=== PATIENT | female | born 1960 | race African-American/Black ===

== ENCOUNTER 2020-07-02 13:56 | Outpatient (CLI) | payer BC, SELFPAY ==
--- NOTE | ~2020-07-02 | MM_ITS ---
EXAMINATION: MM screening ramon BI w gilbert HISTORY: Screening mammogram TECHNIQUE: Craniocaudal and mediolateral oblique 3-D tomosynthesis images were obtained and synthetic 2-D images were generated. CAD analysis was submitted and interpreted. COMPARISON: 02/25/2016 post stereotactic biopsy mammogram 01/20/2016 diagnostic right digital mammogram 12/11/2015 bilateral digital screening mammogram BREAST PARENCHYMAL COMPOSITION: There are scattered areas of fibroglandular density. FINDINGS: There are 2 biopsy markers in the posterior aspect of the upper outer quadrant of the right breast from 02/25/2016 stereotactic biopsy of 2 separate clusters of microcalcifications, reportedly benign. Occasional bilateral benign calcifications are noted. There is no evidence of suspicious mass, calcification, or architectural distortion to suggest malig terence in either breast. There has been no suspicious interval change. IMPRESSION: 1. No mammographic evidence of malignancy. 2. Recommend routine screening mammography in one year. BI-RADS Category 2: Benign finding(s). Reviewed, dictated and finalized at location D.
--- NOTE | ~2020-07-02 | DEXA_ITS ---
Bone Density Report Name: Corrie Nice Age: 60 Sex: Female Ethnicity: White Date of : 1960 Indication: postmenopausal; height loss; Referring Provider: DOM TATE Study: Bone densitometry was performed. Exam Date: July 02, 2020 Accession number: [id number] Bone Density: Region BMD T-score Z-score Classification AP Spine (L1, L2, L3) 1.066 0.4 1.8 Normal Femoral Neck (Left) 0.802 -0.4 0.8 Normal Total Hip (Left) 0.897 -0.4 0.5 Normal Total Hip Bilateral Avg 0.871 -0.6 0.3 Normal Femoral Neck (Right) 0.818 -0.3 1.0 Normal Total Hip (Right) 0.844 -0.8 0.1 Normal World Health Organization criteria for BMD impression classify patients as: Normal (T-score at or above -1.0), Osteopenia (T-score between -1.0 and -2.5), or Osteoporosis (T-score at or below -2.5). 10-year Fracture Risk: FRAX not reported because: All T-scores for Spine Total, Hip Total, Femoral Neck at or above -1.0 Clinical Information Provided by Patient: Patient maximum height was 72 Menopause Age: 53 No regular weight bearing exercise Drinks caffeinated beverages Onset of menses at age 14 Number of children 1 Impression: The patient has normal bone mass. Discussion: BONE DENSITY IS ABOVE THE MINIMUM DESIRABLE LEVEL AT ALL SKELETAL SITES TESTED. This patient?s bone mineral density is above the minimum desirable level (T-score -1.0 or better) at all sites measured. The patient should follow a healthful lifestyle (good nutrition with adequate calcium and vitamin D, and appropriate weight-bearing exercise). Follow-Up: Consider repeating this study in 5 years or sooner if there is some new clinical indication. Reported by: GLEN on 07/02/2020 2:34:00 PM. Reviewed, dictated and finalized at location ACody [facility]
== END 2020-07-02 13:57 | disposition home or self-care (01) ==
LOC: ANHIMG 14:01
PROVIDERS: PCP Internal Medicine; Visit Provider Obstetrics & Gynecology
DX: Z12.31 Encounter for screening mammogram for malignant neoplasm of breast (principal); Z78.0 Asymptomatic menopausal state
CPT/HCPCS: 77063; 77067; 77080

== ENCOUNTER 2022-04-22 16:07 | Outpatient (CLI) | payer BC, SELFPAY ==
--- NOTE | ~2022-04-22 | XR_ITS ---
EXAMINATION: XR chest 2V 04/22/2022 16:21 INDICATION: Cough and shortness of breath. PROCEDURE: 2 view chest COMPARISON: 12/09/2016 FINDINGS: The lungs are clear. The cardiomediastinal silhouette is within normal limits. There are no pleural effusions. There is no pneumothorax suspected. IMPRESSION: 1: NO ACUTE CARDIOPULMONARY DISEASE. Reviewed, dictated and finalized at location A.
== END 2022-04-22 16:08 ==
PROVIDERS: PCP Family Medicine; Visit Provider Family Medicine
DX: R05.9 Cough, unspecified (principal); J39.8 Other specified diseases of upper respiratory tract; R06.02 Shortness of breath
CPT/HCPCS: 71046

== ENCOUNTER 2022-05-10 14:55 | Outpatient (CLI) | payer BC, SELFPAY ==
--- NOTE | ~2022-05-10 | MM_ITS ---
EXAMINATION: MM screening ramon BI w gilbert HISTORY: Screening mammogram TECHNIQUE: Craniocaudal and mediolateral oblique 3-D tomosynthesis images were obtained and synthetic 2-D images were generated. Bilateral rotated lateral CC views. CAD analysis was submitted and interp reted. COMPARISON: 07/02 2020 bilateral screening mammogram examination 12/28/2015 bilateral screening mammogram BREAST PARENCHYMAL COMPOSITION: There are scattered areas of fibroglandular density. FINDINGS: There is a biopsy marker on the right; history of prior benign right breast biopsies. Bilateral microcalcifications are noted. Bilateral diagnostic mammography with magnification views is recommended. IMPRESSION: 1. Bilateral microcalcifications 2. Bilateral diagnostic mammography with magnification views and possible bilateral breast ultrasound examination are recommended BI-RADS Category 0: Incomplete: Needs additional imaging evaluation. Reviewed, dictated and finalized at location A. IMPRESSION: 1. Bilateral microcalcifications 2. Bilateral diagnostic mammography with magnification views and possible bilat eral breast ultrasound examination are recommended BI-RADS Category 0: Incomplete: Needs additional imaging evaluation.
== END 2022-05-10 14:56 | disposition home or self-care (01) ==
LOC: ANHIMG 14:58
PROVIDERS: PCP Family Medicine; Visit Provider Family Medicine
DX: Z12.31 Encounter for screening mammogram for malignant neoplasm of breast (principal); R92.8 Other abnormal and inconclusive findings on diagnostic imaging of breast
CPT/HCPCS: 77063; 77067

== ENCOUNTER 2022-05-11 11:57 | Outpatient (CLI) | payer BC, SELFPAY ==
[2022-05-11 12:30] LABS: Alanine Aminotransferase 19 U/L (6-35); Albumin Level 4.1 g/dL (3.5-5.1); Alkaline Phosphatase 117 U/L (38-126); Anion Gap 6 mmol/L (8-16); Aspartate Amino Transferase 19 U/L (14-36); Bilirubin,Total 0.6 mg/dL (0.2-1.3); Blood Urea Nitrogen 10 mg/dL (7-17); Carbon Dioxide 27 mmol/L (22-30); Chloride 107 mmol/L (98-107); Cholesterol 184 mg/dL (0-200); Estimated Glomerular Filt Rate > 60; Glucose 129 mg/dL (65-110); HDL Direct 61 mg/dL; Sodium 140 mmol/L (137-145); Triglycerides 62 mg/dL (<150)
[2022-05-11 12:45] LABS: LDL Cholesterol Direct 81 mg/dL
== END 2022-05-11 11:58 | disposition home or self-care (01) ==
LOC: ANHLAB 11:58
PROVIDERS: PCP Family Medicine; Visit Provider Family Medicine
DX: E11.9 Type 2 diabetes mellitus without complications (principal); I10 Essential (primary) hypertension; E78.5 Hyperlipidemia, unspecified
CPT/HCPCS: 36415; 80053; 80061; 83036

== ENCOUNTER 2022-06-14 10:39 | Outpatient (CLI) | payer BC, SELFPAY ==
--- NOTE | 2022-06-14 10:52 | ECG_ITS ---
Measurements Intervals [place] Rate: 75 P: 68 VA: 144 QRS: 15 QRSD: 83 T: 75 QT: 401 QTc: 448 Interpretive Statements SINUS RHYTHM VOLTAGE CRITERIA FOR LVH BORDERLINE T WAVE ABNORMALITY- HIGH LATERAL LEADS BORDERLINE ECG NO PREVIOUS ECG AVAILABLE FOR COMPARISON Electronically Signed On 06-14-2022 11:07:48 CDT by Aram Gonzalez D.O.
[2022-06-14 11:15] LABS: Appearance Urine Clear (Clear); Bacteria Urine Rare /hpf; Bilirubin Urine Negative (Negative); Blood Urine Negative (Negative); Color Urine Yellow (Yellow); Glucose Urine UA Negative (Negative); Ketones Urine Negative (Negative); Leukocyte Esterase Ur Negative LEU/UL (Negative); Nitrate Urine Negative (Negative); Non Pathogenic Casts 0-2; Protein Urine 2+ mg/dL (Negative); RBC Urine 0-2 /hpf (0-2); Specific Grav Ur 1.014 (1.001-1.035); Squamous Epithelial Cell Urine Occasional /hpf (Few); WBC Urine 0-5 /hpf
[2022-06-14 11:20] LABS: Add Urine Microscopic? YES
== END 2022-06-14 10:40 | disposition home or self-care (01) ==
PROVIDERS: PCP Family Medicine; Visit Provider Nurse Practitioner Family
DX: M17.11 Unilateral primary osteoarthritis, right knee (principal); R94.31 Abnormal electrocardiogram [ECG] [EKG]
CPT/HCPCS: 81001; 93005

== ENCOUNTER 2022-08-30 13:02 | Outpatient (CLI) | payer BC, SELFPAY ==
--- NOTE | ~2022-08-30 | MM_ITS ---
EXAMINATION: MM diagnostic ramon BI w gilbert HISTORY: Bilateral breast calcifications on screening mammogram TECHNIQUE: Magnification views of the breasts were performed and synthetic 2-D images were generated. CAD analysis was submitted and interpreted. COMPARISON: 05/10/2022,07/02/2020 BREAST PARENCHYMAL COMPOSITION: There are scattered areas of fibroglandular density. FINDINGS: There are multiple vascular calcifications of the right breast. No suspicious right breast calcification is seen. With magnification, calcifications in the upper outer quadrant of the left temo ast appear stable when compared to prior mammograms. IMPRESSION: 1. No mammographic evidence of malignancy. 2. Recommend routine screening mammography in one year. BI-RADS Category 2: Benign finding(s). Reviewed, dictated and finalized at location D.
== END 2022-08-30 13:03 | disposition home or self-care (01) ==
PROVIDERS: PCP Family Medicine; Visit Provider Family Medicine
DX: R92.0 Mammographic microcalcification found on diagnostic imaging of breast (principal)
CPT/HCPCS: 77062; 77066; G0279

== ENCOUNTER → 2023-03-03 14:40 | Outpatient (CLI) | payer BC, SELFPAY ==
--- NOTE | ~2023-03-03 | US_ITS ---
EXAMINATION: US thyroid DATE: 03/03/2023 14:57 INDICATION: Nontoxic goiter, unspecified. TECHNIQUE: Multiple ultrasound images of the thyroid were obtained. COMPARISON: None. FINDINGS: The right thyroid lobe measures 6.1 x 2.0 x 2.4 cm. The left thyroid lobe measures 5.3 x 1.6 x 2.1 c m. In the right thyroid lobe, there is a 1.8 cm solid, hypoechoic, wider than tall nodule with geovanna h margin without echogenic foci (TI-RADS TR4). In the right thyroid lobe, there is a 5 mm solid, very hypoechoic, wider than tall nodule with smooth margin without echogenic foci (TR4). In the left thyr oid lobe, there is a 3 mm nodule. IMPRESSION: 1. Multinodular goiter. Ultrasound-guided fine-needle aspiration of the 1.8 cm right thyroid nodule i s recommended. Reviewed, dictated and finalized at location E. AL SERVICES DIRECTOR IMPRESSION: 1. Multinodular goiter. Ultrasound-guided fine-needle aspiration of the 1.8 cm right thyroid nodule is recommended.
== END ==
PROVIDERS: PCP Family Medicine; Visit Provider Family Medicine
DX: E04.2 Nontoxic multinodular goiter (principal)
CPT/HCPCS: 76536

== ENCOUNTER 2023-04-07 12:34 | Outpatient (CLI) | payer BC, SELFPAY ==
--- NOTE | ~2023-04-07 | US_ITS ---
EXAMINATION: US FNA w image guidance DATE: 04/07/2023 13:46 INDICATION: Nontoxic single thyroid nodule. TECHNIQUE: The procedure and its benefits and risks were discussed with the patient. Risks specifically discusse d included bleeding. The patient verbalized understanding of the risks and agreed to proceed. The nec k was prepped and draped in the usual sterile manner. 1% lidocaine was used for local anesthesia. 7 passes were made with a 25G needle into the lesion under ultrasound guidance. There were no immedia te complications. FINDINGS: Grayscale ultrasound images demonstrate needles advanced into a 1.8 cm right thyroid nodule for biops y. IMPRESSION: 1. Ultrasound-guided fine needle aspiration of a right thyroid nodule. Reviewed, dictated and finalized at location A. 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
== END 2023-04-07 12:35 | disposition home or self-care (01) ==
PROVIDERS: PCP Family Medicine; Visit Provider Family Medicine
DX: E04.1 Nontoxic single thyroid nodule (principal)
CPT/HCPCS: 10005; 88172; 88173; 88305

== ENCOUNTER 2023-05-26 09:30 | Outpatient (CLI) | payer BC, SELFPAY ==
[2023-06-07 18:06] VITALS: BMI 28.5
--- NOTE | 2023-06-07 18:06 | WPDSLEEPSTUD ---
Sleep Study Date of Study: 05/26/23 Ordering Provider: Pablo Gupta DO Interpreting Physician: Heidi Newton DO Sleep Study Type: Polysomnogram Height: 1.83 m Weight: 95.254 kg Body Mass Index: 28.5 Neck Circumference (inches): 14 [place]: 8 Reason for Sleep Study Newly diagnosed CHF. Difficulty sleeping Sleep History The patient is a 63-year-old female with hypertension, congestive heart failure, type 2 diabetes, osteoarthritis, urinary incontinence and current tobacco use that had a sleep study ordered by her primary care physician for evaluation of sleep apnea. The patient occasionally has trouble sleeping when she has a cold. She occasionally wakes up gasping for air throughout the night. She rarely has breathing problems at night observed by herself or others. She frequently sweats excessively at night. She occasionally has heart palpitations or irregular heartbeats during the night. She rarely falls asleep during the day and never while driving. She denies sleep paralysis, cataplexy and hypnagogic / hypnopompic hallucinations. She denies having trouble at school or work due to sleepiness. She denies feeling afraid of going to sleep. She denies having nightmares. She rarely remembers her dreams. She rarely has thoughts racing through her mind. She rarely feels sad or depressed. She frequently has anxiety. She denies having muscular tension. She rarely notices parts of her body jerk. She denies kicking during the night. She rarely has crawling and aching feelings in her legs and rarely has leg pain during the night. She denies grinding her teeth during sleep denies awakening with morning jaw pain. She denies being bothered by pain during the day and denies being awakened by pain during the night. She frequently wakes up feeling stiff in the morning. She frequently wakes up with sore or achy muscles. She rarely wakes up with pain in the neck, spine and other joints. She goes to bed between 10:00 p.m. to 12:00 a.m. on both weekdays and weekends. It takes her 1 hour to fall asleep. She wakes up twice throughout the night for unknown reasons. Sometime she is unable to fall back asleep. She wakes up at 7:00 a.m. on both weekdays and weekends. She typically gets 3 hours of sleep per night. She will stay in bed for 1 hour after waking up in the morning. She currently lives alone. She denies consuming any caffeinated beverages within 2 hours of bedtime. She denies engaging in physical exercise before bedtime. She will watch television before falling asleep. She denies taking naps in the afternoon or the evening. She consumes 1 cup of caffeinated beverage in the morning. She has 1 alcoholic beverage after work. She currently smokes 1 pack of cigarettes per week. She denies recreational drug use. [facility] Past Medical History Medical History Fx surg nck humerus-closed (~11/2021) History of vaginal delivery Knee effusion Left hip pain Left knee DJD Right knee DJD Tooth decay Trochanteric bursitis, left hip Uterine fibroid Family History Family History Father Diabetes mellitus, Onset Age: 81 Hypertension, Onset Age: 81 Sibling Patient's sister is in good health Patient's brother is in good health Mother Family history of congestive heart failure Other Family history of cardiovascular disease Social History Social History Social History: Caffeine- daily Smoking status: Never smoker Second hand tobacco smoke exposure: No Smoking end date: 02/07/06 Alcohol intake: current Drinks per week: 5 Alcohol use details: beer Substance use: never Lack of Transportation: No Lack of Food: Never True Current Housing: I Have Housing Concerned About Future Housing: No Difficulty Paying Gas/Electric Bi
== END 2023-05-27 06:45 | disposition home or self-care (01) ==
LOC: ANHCSM 09:30
PROVIDERS: PCP Family Medicine; Visit Provider Family Medicine
DX: G47.33 Obstructive sleep apnea (adult) (pediatric) (principal); G47.10 Hypersomnia, unspecified
CPT/HCPCS: 95810

== ENCOUNTER 2023-06-24 08:36 | Outpatient (CLI) | payer BC, SELFPAY ==
--- NOTE | 2023-07-08 19:50 | WPDSLEEPSTUD ---
Sleep Study Date of Study: 06/24/23 Ordering Provider: Pablo Gupta DO Interpreting Physician: La Guerrero MD Sleep Study Type: CPAP Titration Height: 1.8 m Weight: 97.522 kg Body Mass Index: 29.9 Neck Circumference (inches): 15 [place]: 8 Reason for Sleep Study * 05/26/2023 polysomnogram with an AHI 11.4 and desaturaiton to 91%, now presents for CPAP titration Sleep History Corrie Nice is a 63-year-old female with hypertension, congestive heart failure, type 2 diabetes, osteoarthritis, urinary incontinence and current tobacco use who had a basic polysomnogram 05/26/2023 showing an apnea-hypopnea index of 11.4 and desaturation to 92%. She now presents for CPAP titration. She occasionally has trouble sleeping when she has a cold. She occasionally wakes up gasping for air at night. She rarely has breathing problems at night observed by others. She frequently sweats excessively at night. She occasionally has heart palpitations or irregular heartbeats during the night. She rarely falls asleep during the day, never while driving. She denies feeling paralyzed on sleep onset or on waking. She does not have muscle weakness with strong emotion. She does not have vivid dreams on falling asleep or upon awakening. She denies having trouble at school or work due to sleepiness. She denies feeling afraid of going to sleep. She denies having nightmares. She rarely remembers her dreams. She rarely has thoughts racing through her mind. She rarely feels sad or depressed. She frequently has anxiety. She denies having muscular tension. She rarely notices parts of her body jerk. She denies kicking during the night. She rarely has crawling and aching feelings in her legs and rarely has leg pain during the night. She denies grinding her teeth during sleep denies awakening with morning jaw pain. She denies being bothered by pain during the day and denies being awakened by pain during the night. She frequently wakes up feeling stiff in the morning. She frequently wakes up with sore or achy muscles. She rarely wakes up with pain in the neck, spine and other joints. Normal bedtime is between 10:00 p.m. to 12:00 a.m. on both weekdays and weekends. It takes her 1 hour to fall asleep. She wakes up twice throughout the night for unknown reasons. Sometimes, she is unable to return to sleep. She wakes at 7:00 a.m. on both weekdays and weekends. She typically gets 3 hours of sleep per night. She stays in bed for 1 hour after waking. She currently lives alone. She denies taking naps in the afternoon or the evening. She consumes 1 cup of caffeinated beverage in the morning. She has 1 alcoholic beverage after work. She currently smokes 1 pack of cigarettes per week. She denies recreational drug use. REPLACED BY [facility] Past Medical History Medical History Fx surg nck humerus-closed (~11/2021) History of vaginal delivery Knee effusion Left hip pain Left knee DJD Obstructive sleep apnea Right knee DJD Tooth decay Trochanteric bursitis, left hip Uterine fibroid Family History Family History Father Diabetes mellitus, Onset Age: 81 Hypertension, Onset Age: 81 Sibling Patient's sister is in good health Patient's brother is in good health Mother Family history of congestive heart failure Other Family history of cardiovascular disease Social History Social History Social History: Caffeine- daily Smoking status: Never smoker Second hand tobacco smoke exposure: No Smoking end date: 02/07/06 Alcohol intake: current Drinks per week: 5 Alcohol use details: beer Substance use: never Lack of Transportation: No Lack of Food: Never True Current Housing: I Have Housing Concerned About Future Housing: No Difficulty Paying Gas/Electric Bills: No Difficult
[2023-07-11 10:02] VITALS: BMI 29.9
== END 2023-06-25 05:33 | disposition home or self-care (01) ==
PROVIDERS: PCP Family Medicine; Visit Provider Family Medicine
DX: G47.33 Obstructive sleep apnea (adult) (pediatric) (principal); I10 Essential (primary) hypertension
CPT/HCPCS: 95811

== ENCOUNTER 2023-07-07 14:01 | Outpatient (CLI) | payer BC, SELFPAY ==
--- NOTE | ~2023-07-07 | US_ITS ---
EXAMINATION: US pelvic complete w TV DATE: 07/07/2023 14:53 INDICATION: Uterine hypertrophy Comparison:No prior studies for comparison. TECHNIQUE: Multiple transabdominal and endovaginal sonographic images of the pelvis performed. FINDINGS: The uterus measures 11.5 x 8.8 cm. There is a partially calcified mass at the fundus of the uterus measuring 9.4 cm with dense posterior shadowing. There is a smaller 1.4 cm uterine fibroid at the fundus. The endometrium is not well delineated. The right ovary measures 2.8 x 1.8 x 2.3 cm and the left ovary measures 2.6 x 1.6 x 1.8 cm. There ar e small follicles in each ovary. Normal doppler signal in both ovaries. There is no free fluid in the pelvis. There are no abnormal masses seen on either side. IMPRESSION: 1. Significantly enlarged fibroid uterus. Endometrium is not delineated due to coarse calcifications of uterine fibroids. Reviewed, dictated and finalized at location B.
== END 2023-07-07 14:02 | disposition home or self-care (01) ==
LOC: ANHIMG 14:04
PROVIDERS: PCP Family Medicine; Visit Provider Obstetrics & Gynecology
DX: N85.2 Hypertrophy of uterus (principal); D25.9 Leiomyoma of uterus, unspecified
CPT/HCPCS: 76830; 76856

== ENCOUNTER 2023-09-06 06:48 | Outpatient (CLI) | payer BC, SELFPAY ==
--- NOTE | ~2023-09-06 | CT_ITS ---
EXAMINATION: CT abdomen pelvis wo/w con DATE: 09/06/2023 07:33 INDICATION: Microscopic hematuria. TECHNIQUE: Computed tomography (CT) of the abdomen and pelvis was performed without and with intraven ous contrast using a total of 130 mL Omnipaque-350 intravenous contrast with a double-bolus technique for simultaneous opacification of the renal parenchyma and renal collecting system. Automated exposu re control and iterative reconstruction technique were employed. The dose-length product was 1200.98 mGy-cm. COMPARISON: None FINDINGS: The visualized portions of the lung bases demonstrate minimal atelectasis. There is a 4 mm nodule in left lower lobe, likely benign. No pleural effusion. Cardiomegaly is noted. No pericardial effusion. There is a small sliding hiatal hernia. The liver, gallbladder, spleen, pancreas, and adrenal glands are normal. There is cortical thinning of the kidneys. There is a parenchymal calcification in left k idney. There is no urolithiasis. Right ureter is not well opacified distally, but is normal. Left ure ter is well opacified and is normal. The bladder is normal. There is an 8.8 cm uterine fibroid. There are no pathologically enlarged lymph nodes. There is no free intraperitoneal fluid. There is severe thoracic and lumbar spondylosis. IMPRESSION: 1. Cortical thinning of the kidneys. No etiology for hematuria. 2. Uterine fibroid. 3. Small sliding hiatal hernia. Reviewed, dictated and finalized at location A.
[2023-09-06 07:14] LABS: Estimated Glomerular Filt Rate > 60
== END 2023-09-06 06:49 | disposition home or self-care (01) ==
PROVIDERS: PCP Family Medicine; Visit Provider Urology
DX: R31.29 Other microscopic hematuria (principal); D25.9 Leiomyoma of uterus, unspecified; K44.9 Diaphragmatic hernia without obstruction or gangrene
CPT/HCPCS: 74178; Q9967

== ENCOUNTER 2024-01-17 14:00 | Outpatient (RCR) | payer BC, SELFPAY ==
--- NOTE | 2023-12-20 14:33 | OPREHPOC ---
Outpatient Therapy Plan of Care This is a Multidisciplinary Plan of Care that may contain components documented by all disciplines (PT, OT, and ST.) PT Problem 1 PT Problem #1 Knowledge Deficit PT Goal 1 Goal / Goal Update *indep with HEP Target Visit 6 PT Problem 2 PT Problem #2 Pain PT Goal 1 Goal / Goal Update 1* decrease pain rating to 5/10 at worst 2* improve self assessment LE functional scale rating to 30% limitation in activity level 3* pt report able to stand at work for 7 hours before pain increases Target Visit 6 PT Problem 3 PT Problem #3 Impaired Strength PT Goal 1 Goal / Goal Update increase strength, to improve stability to trunk and LE's: 1* single leg standing R x 20 seconds 2* single leg standing L x 20 seconds 3* standing bilateral ankle PF x 15 reps without loss of balance 4* 5 reps sit/stand time of 20 seconds Target Visit 6
--- NOTE | 2023-12-20 14:33 | PTOPEVAL1 ---
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 Reported Pain Level Pain Score Self Report Additional Pain Score Comments pain range in the past week 3-09/16; L hip & buttock--sometimes sharp pain, consistent pain there, aching increase pain: standing at work 6 hours then gets worse, step up curb using L leg decrease pain: sit, rest, over the counter pain meds PRN walking slower due to pain; sleeping is Ok, can feel the pain but can sleep today has been a better day, due to off work past 2 days due to having a cold; Assessment PT Clinical Summary Corrie has the diagnosis of L hip pain/ITB syndrome. She reports onset of pain about 1 year ago, decreased with injection to L hip.. LE functional scale self rating of 40% limitation in activity level. Pain is increased with standing at work. Medical history includes bilateral knee OA. With the evaluation: she has poor standing posture and position of ankles, knees, with lumbar lordosis; decreased R and L knee flexion and extension ROM; decreased bilateral trunk, ankle and hip strength; 5 reps sit/stand time of 28 seconds; 2 minute walking test distance of 460'; no tenderness with palpation over L ITB, bilateral lumbar or sacral areas. Skilled PT services are indicated for modalities to decrease pain, therapeutic exercises to increase strength of trunk and LE's to improve position and stability to spine and LE's, with education for HEP and posture education. Plan of Care Interventions Electrical Stimulation,Hot Pack/Cold Pack,Manual Therapy,Neuro Re-education,Patient/Caregiver Education,Therapeutic Activities,Therapeutic Exercise,Ultrasound,Other Other Interventions taping PT Services Indicated Yes Treatment Frequency and 1x/wk for 6 visits Duration These treatments will address the objective and functional deficits as defined above. The patient will be advanced safely and appropriately in order for the patient to progress towards his/her prior level of function. Additional exercises will be introduced and as well as a comprehensive home exercise program upon discharge, if needed, ?to ensure carryover of functional gains achieved in the clinic. This treatment plan has been reviewed and agreement upon by the patient.
--- NOTE | 2024-01-24 14:34 | PCPTNOTE ---
pt called and left voice mail message to cancel reevaluation appt due to illness. Her appt was 2:00 and I received message at 2:20 per jabber.
--- NOTE | 2024-02-22 10:04 | PCPTNOTE ---
pt called and canceled today's reevaluation appt.
--- NOTE | 2024-02-22 14:51 | PTOPDC ---
Assessment and note entered by Yumiko Reyna, PT Assessment Status Discharge - Pt Not Present Diagnosis ITB syndrome ICD-10 Condition Codes (PT) Pain in left hip M25.552 Onset about 1 year ago Subjective Information pt called and canceled today's reevaluation appt, stated she was doing better and did not need any more therapy. Assessment PT Clinical Summary Corrie has received 4 PT sessions, from December 19 to January 16. She then canceled 2 appointments after that. Today with canceling, stating doing better and not want any more therapy. Discharge PT services. The goals were not addressed. Plan of Care PT Services Indicated No
== END 2024-02-23 11:05 | disposition home or self-care (01) ==
LOC: ANHPT 14:00
PROVIDERS: PCP Family Medicine; Visit Provider Family Medicine
DX: M25.552 Pain in left hip (principal); M76.32 Iliotibial band syndrome, left leg
CPT/HCPCS: 97110; 97140; 97162; 97530

== ENCOUNTER 2024-03-07 09:42 | Outpatient (CLI) | payer BC, SELFPAY ==
--- NOTE | ~2024-03-07 | MM_ITS ---
EXAMINATION: MM screening ramon BI w gilbert HISTORY: Screening TECHNIQUE: Craniocaudal and mediolateral oblique 3-D tomosynthesis images were obtained and synthetic 2-D images were generated. CAD analysis was submitted and interpreted. COMPARISON: Comparison to multiple prior studies sequentially, with oldest reviewed study dated 06/22. BREAST PARENCHYMAL COMPOSITION: Not dense: There are scattered areas of fibroglandular density. FINDINGS: Bilateral breast calcifications are not significantly changed from prior examinations allow ing for differences of technique. No new masses, calcifications or architectural distortion. There is no evidence of suspicious mass, calcification, or architectural distortion to suggest malignancy in either breast. There has been no suspicious interval change. IMPRESSION: 1. No mammographic evidence of malignancy. 2. Recommend routine screening mammography in one year. BI-RADS CATEGORY 2 - BENIGN FINDINGS Reviewed, dictated and finalized at location A. [facility]
--- OUTSIDE RECORDS SUMMARY | 2024-03-07 10:25 | XMS_ITS | Clinical Summary ---
Author Organization [facility] Address [address] [place] [address] Care Team Providers Care Document Reviewer Name Role Phone Pablo Gupta Primary Care Provider [phone] Allergies Active Allergy Reactions Criticality Noted Date Comments Gadobenate Dimeglumine Itching,Nausea An d Vomiting Low 07/24/2019 Patient became nauseated from Multihance. ??Became itchy later Medications metFORMIN (GLUCOPHAGE) 1,000 mg tablet Take 1,000 mg by mouth daily with breakfast. Active glimepiride (AMARYL) 2 mg tabletIndicatio ns:type 2 diabetes mellitus Take 2 mg by mouth daily before breakfast. Active pioglitazone (ACTOS) 30 mg tabletIndicatio ns:type 2 diabetes mellitus Take 1 tablet (30 mg total) by mouth daily Active atorvastatin (LIPITOR) 20 mg tablet Take 1 tablet (20 mg total) by mouth daily Active insulin glargine (LANTUS) 100 unit/mL injection Inject 65 Units under the skin daily. Active aspirin 81 mg tablet Take 1 tablet (81 mg total) by mouth daily. 30 tablet 11 8 Active furosemide (LASIX) 40 mg tablet TAKE 1 TABLET(40 MG) BY MOUTH DAILY 90 tablet 1 0 Active oxyCODONE-aceta minophen (PERCOCET) 5-325 mg per tabletIndicatio ns:Pain Take 1 tablet by mouth every 6 (six) hours as needed for pain 6 tablet 2 Active Additional Information Patient not taking.Reported on 01/09/2024 lisinopriL (PRINIVIL,ZESTR VA) 20 mg tablet 2 Active metoprolol XL (TOPROL-XL) 50 mg extended release tablet Take 1 tablet (50 mg total) by mouth daily 90 tablet 1 3 Active Ozempic 1 mg/dose (4 mg/3 mL) pen injector injection ADMINISTER 1 MG UNDER THE SKIN WEEKLY 4 Active Active Problems Problem Noted Date Diagnosed Date H/O cardiomyopathy 12/11/2021 CAMILO (obstructive sleep apnea) 12/11/2021 Nonrheumatic tricuspid valve regurgitation 03/23 Nonischemic cardiomyopathy (CMS/HCC) 03/03/2017 DEVINE (dyspnea on exertion) 03/03/2017 COPD (chronic obstructive pulmonary disease) Hypertension associated with diabetes 03/03/2017 Non-rheumatic mitral regurgitation 03/03/2017 Pulmonary HTN 03/03/2017 Chronic heart failure with p reserved ejection fraction (CMS/HCC) 03/03/2017 Mixed diabetic hyperlipidemi a associated with type 2 diabetes mellitus (CMS/HCC) 03/03/2017 Palpitations 03/03/2017 Encounters Date Type Department Care Team Description 01/13/2024 Telephone [facility] Cardiology [address] [place] [address] Chetan Stroud MD 01/09/2024 2:45 PM GREENHOUSE SUPERINTENDENT Office Visit [facility] Cardiology [address] [place] [address] Chetan Stroud MD Nonischemic cardiomyopathy (CMS/HCC) (HCC) (Primary Dx); Non-rheumatic mitral regurgitation from Last 3 Months Surgical History Surgery Date Site/Laterality Comments BREAST BIOPSY Medical History Medical History Date Comments Hypertension Valvular disease Hyperlipidemia Diabetes mellitus (HCC) CHF (congestive heart failure) (CMS/HCC) (HCC) Family History Medical History Relation Name Comments Diabetes Father Heart failure Mother Relation Name Status Comments Father Mother Social History Tobacco Use Types Packs/Day Years Used Date Smoking Tobacco: Former Smokeless Tobacco: Never Tobacco Cessation:Counseling Given: Not Answered Alcohol Use Standard Drinks/Week Comments No 0 (1 standard drink = 0.6 oz pur e alcohol) Comments No Sex and Gender Information Value Date Recorded Sex Assigned at Not on file Legal Sex Female 11:20 AM GREENHOUSE SUPERINTENDENT Gender Identity Not on file Sexual Orientation Not on file Obstetrics History Last Filed Vital Signs Vital Sign Reading Time Taken Comments Blood Pressure 144/80 01/09/2024 2:25 PM GREENHOUSE SUPERINTENDENT Pulse 83 01/09/2024 2:25 PM GREENHOUSE SUPERINTENDENT Temperature 37 ??C (98.6 ??F) 11/09/2021 4:37 PM CDT Respiratory Rate 16 12/11/2021 2:07 PM CDT Oxygen Saturation 94% 01/09/2024 2:25 PM GREENHOUSE SUPERINTENDENT Inhaled Oxygen Concentration - - Weight 98.9 kg (218 lb) 01/09/2024 2:25 PM GREENHOUSE SUPERINTENDENT Height 182.9 cm (6') 01/09/2024 2:25 PM GREENHOUSE SUPERINTENDENT Body Mass Index 29.57 01/09/2024 2:25 PM GREENHOUSE SUPERINTENDENT Plan of Treatment Health Maintenance Due Date Last Done Comments Albumin Creatinine Ratio, Urine 1961 Breast Cancer Screening-Mammogram 1961 Cervical Cancer Screening 1961 Colon Cancer Screening-Colonoscopy 1961 Depression Screening 1961 Hemoglobin A1C 1961 Hepatitis C Screening 1961 Dilated Eye Exam 1961 Foot Exam 1961 Pneumococcal vaccine <65 (1 of 2 - PCV) 04/17/1967 DTaP/Tdap/Td Vaccine (1 - Tdap) 1972 Hepatitis B Screening 04/17/1979 Regular Well Visit/Exam 18-64 04/17/1979 Zoster Vaccine (1 of 2) 04/17/2011 eGFR 02/27/2021 02/28/2020 Lipid Panel 09/18/2022 09/18/2021, 05/0 08/2020, 06/29/2019, Additional history exists Covid-19 Vaccine (3 - 2023-2 5 season) 2023 05/14/2020, 04/14/2020 Influenza Vaccine (#1) 2023 0, 01/18/2018, 12/18/2013, Additional history exists Procedures Procedure Name Priority Date/Time Associated Diagnosis Comments POCT LIPID PANEL Routine 09/18/2021 3:12 PM CDT Mixed diabetic hyperlipidemia associated with type 2 diabetes mellitus (CMS/HCC) (HCC) EGFR Routine 02/28/2020 3:04 PM GREENHOUSE SUPERINTENDENT Nonischemic cardiomyopathy (CMS/HCC) from Last 3 Months or Most Recently Relevant to Health Maintenance Results * POCT lipid panel (09/18/2021 3:12 PM CDT) Cholesterol, POC 125 mg/dL HDL, POC 51 mg/dL Triglycerides, POC 47 mg/dL LDL Cholesterol POC 64 mg/dL Chol/HDL Ratio, POC 2.4 Comment:Glucose 127 Non-HDL Cholesterol, POC 73 mg/dL Cholesterol Total, POC 125 mg/dL Capillary blood 09/18/2021 3 :12 PM CDT Cesario Parekh MD POINT OF CARE TEST ORDER GERARDO Final Result * eGFR (02/28/2020 3:04 PM GREENHOUSE SUPERINTENDENT) eGFR 77 mL/min/1.7 3 m2 [facility] TRACY Comment: Interpretive Data Reference Interval Normal ?>/= 90 mL/min/1.73m2 Mildly decreased* ? 60 - 89 mL/min/1.73m2 Mildly to moderately decreased ?45 - 59 mL/min/1.73m2 Moderately to severely decreased ??30 - 44 mL/min/1.73m2 Severely decreased ?15 - 29 mL/min/1.73m2 Kidney Failure ?< 15 ??mL/min/1.73m2 *Relative to young adult level Estimated glomerular filtration rate is determined by the CKD-EPI equation recommended by the National Kidney Foundation (KDIGO 2012 Clinical Practice Guideline for the Evaluation and Management of Chronic Kidney Disease. Kidney Intnl Suppl Feb 2012;3:1). The CKD-EPI equation should not be used for patients with unstable renal function and has not been validated in children and those over 70. Current interpretive data was last reviewed 2020 Testing performed by: [facility], [address] [place] [address] Blood specimen (specimen) 02/28/2020 3:04 PM GREENHOUSE SUPERINTENDENT 02/28/2020 3:04 PM GREENHOUSE SUPERINTENDENT Cesario Parekh MD LAB BLOOD ORDERABLES Fin al Result [facility] [id number] [address] Department [place] [address] from Last 3 Months or Most Recently Relevant to Health Maintenance Insurance [facility] Care Teams Document Reviewer Relationship Specialty Start Date End Date Pablo Gupta DO PCP - General Family Medicine 09/18/21
--- OUTSIDE RECORDS SUMMARY | 2024-03-07 10:25 | XMS_ITS | Encounter Summary ---
Author Organization [facility] Address [address] [place] [address] Care Team Providers Care Oil Laboratory Analyst Name Role Phone Madison Ramos MD Unavailable [phone] Chetan Orellana MD Primary Care Provider [phone] Encounter Details Date Type Department Care Team (Latest Contact Info) Description 03/06/2024 Travel Social History Tobacco Use Types Packs/Day Years Used Date Smoking Tobacco: Never Smokeless Tobacco: Never Alcohol Use Standard Drinks/Week Comments Never 0 (1 standard drink = 0.6 oz pur e alcohol) Sex and Gender Information Value Date Recorded Sex Assigned at Not on file Gender Identity Not on file Sexual Orientation Not on file documented as of this encounter Plan of Treatment Upcoming Encounters Date Type Department Care Team (Late st Contact Info) Description 07/17/2024 2:30 PM CDT Office Visit [facility] - Urology [address] [place] [address] Clayton Celis MD [address] [facility] [address] [place] [address] documented as of this encounter Visit Diagnoses Not on filedocumented in this encounter Care Teams Oil Laboratory Analyst Relationship Specialty Start Date End Date Chetan Orellana MD [address] [place] [address] [address] [place] [address] PCP - General Internal Medicine 03/06/24 Madison Ramos MD 03/01/16 documented as of this encounter
--- OUTSIDE RECORDS SUMMARY | 2024-03-07 10:25 | XMS_ITS | Referral Summary ---
Author Organization [facility] Address [address] [place] [address] Care Team Providers Care Fibrous Wallboard Inspector Name Role Phone Pablo Gupta Primary Care Provider [phone] Encounters Date Type Department Care Team Description 01/13/2024 Telephone [facility] Medical [facility] Cardiology [address] [place] [address] Chetan Stroud MD 01/09/2024 2:45 PM DATA MANAGEMENT ENGINEER Office Visit [facility] Medical [facility] Cardiology [address] [place] [address] Chetan Stroud MD Nonischemic cardiomyopathy (CMS/HCC) (HCC) (Primary Dx); Non-rheumatic mitral regurgitation from Last 3 Months Allergies Active Allergy Reactions Criticality Noted Date [...] Patient not taking.Reported on 01/09/2024 lisinopriL (PRINIVIL,ZESTR [place]) 20 mg tablet 2 Active metoprolol XL [...] Nonrheumatic tricuspid valve regurgitation 03/23 Nonischemic cardiomyopathy ([facility]/HCC) 03/03/2017 DEVINE (dyspnea on exertion) 03/03/2017 COPD (chronic obstructive pulmonary disease) Hypertension associated with diabetes 03/03/2017 Non-rheumatic mitral regurgitation 03/03/2017 Pulmonary HTN 03/03/2017 Chronic heart failure with p reserved ejection fraction ([facility]) 03/03/2017 Mixed diabetic hyperlipidemi a associated with type 2 diabetes mellitus ([facility]) 03/03/2017 Palpitations 03/03/2017 Social History Tobacco Use Types Packs/Day Years Used Date Smoking Tobacco: Former Smokeless Tobacco: Never Tobacco Cessation:Counseling Given: Not Answered Alcohol Use Standard Drinks/Week Comments No 0 (1 standard drink = 0.6 oz pur e alcohol) Comments No Sex and Gender Information Value Date Recorded Sex Assigned at Not on file Legal Sex Female 11:20 AM DATA MANAGEMENT ENGINEER Gender Identity Not on file Sexual Orientation Not on file Last Filed Vital Signs Vital Sign Reading Time Taken Comments Blood Pressure 144/80 01/09/2024 2:25 PM DATA MANAGEMENT ENGINEER Pulse 83 01/09/2024 2:25 PM DATA MANAGEMENT ENGINEER Temperature 37 ??C (98.6 ??F) 11/09/2021 4:37 PM CDT Respiratory Rate 16 12/11/2021 2:07 PM CDT Oxygen Saturation 94% 01/09/2024 2:25 PM DATA MANAGEMENT ENGINEER Inhaled Oxygen Concentration - - Weight 98.9 kg (218 lb) 01/09/2024 2:25 PM DATA MANAGEMENT ENGINEER Height 182.9 cm (6') 01/09/2024 2:25 PM DATA MANAGEMENT ENGINEER Body Mass Index 29.57 01/09/2024 2:25 PM DATA MANAGEMENT ENGINEER Plan of Treatment Not on file Procedures Procedure Name Priority Date/Time Associated Diagnosis Comments POCT LIPID PANEL Routine 09/18/2021 3:12 PM CDT Mixed diabetic hyperlipidemia associated with type 2 diabetes mellitus (CMS/HCC) (HCC) EGFR Routine 02/28/2020 3:04 PM DATA MANAGEMENT ENGINEER Nonischemic cardiomyopathy (CMS/HCC) from Last 3 Months or Most Recently Relevant to Health Maintenance Results * POCT lipid panel (09/18/2021 3:12 PM CDT) Cholesterol, POC 125 mg/dL HDL, POC 51 mg/dL Triglycerides, POC 47 mg/dL LDL Cholesterol POC 64 mg/dL Chol/HDL Ratio, POC 2.4 Comment:Glucose 127 Non-HDL Cholesterol, POC 73 mg/dL Cholesterol Total, POC 125 mg/dL Capillary blood 09/18/2021 3 :12 PM CDT us Cesario Parekh MD POINT OF CARE TEST ORDER GERARDO Final Result * eGFR (02/28/2020 3:04 PM DATA MANAGEMENT ENGINEER) eGFR 77 mL/min/1.7 3 m2 [facility] TRACY [...] was last reviewed 2020 Testing performed by: [facility], [facility] [place] [address] Blood specimen (specimen) 02/28/2020 3:04 PM DATA MANAGEMENT ENGINEER 02/28/2020 3:04 PM DATA MANAGEMENT ENGINEER us Cesario Parekh MD LAB BLOOD ORDERABLES Fin al Result Performing Organization Address City/State/[facility] [place] Phone Number [facility] [id number] [address] Department [place] [address] from Last 3 Months or Most Recently Relevant to Health Maintenance Insurance [facility] Care Teams Fibrous Wallboard Inspector Relationship Specialty Start Date End Date Pablo Gupta DO PCP - General Family Medicine 09/18/21
--- OUTSIDE RECORDS SUMMARY | 2024-03-07 10:25 | XMS_ITS | Clinical Summary ---
Author Organization [facility] Address [address] [place] [address] Care Team Providers Care Campus Director Name Role Phone Madison Ramos MD Unavailable [phone] Chetan Orellana MD Primary Care Provider [phone] Source Comments [facility],non-owned Affiliates and Associated Physician Practices is amultiple site organization consisting of ambulatory clinics and hospital sitesin [place], [place], [place] and [place]. This disclosure is being madepursuant to the Care Everywhere program and may not contain all information available regarding this patient. Last updated 17.[facility] Allergies Active Allergy Reactions Criticality Noted Date Comments Gadobenate Itching,Nausea and/o r Vomiting 07/24/2019 Patient became nauseated from Multihance. ??Became itchy later Medications * Be aware that medications may not be up to date on this document. Alwaysverify current medications with the patient. Medication Sig Dispensed Refills Start Date End Date Status lisinopril (PRINIVIL; ZESTRIL) 40 MG tablet Take 1 (one) tablet by mouth once daily Active JANUVIA 100 MG TABS Take 100 mg by mouth daily. Active metformin (GLUCOPHAGE) 500 MG tablet Take 500 mg by mouth daily. Active NECON (28) PO Take by mouth daily. Active Semaglutide (OZEMPIC, 2 MG/DOSE, SC) Inject 2 mg subcutaneously 3 times daily as needed 02/07/2023 Active metoprolol succinate XL 24hr (Toprol XL) 50 MG tablet Take 1 (one) tablet by mouth once daily Active atorvastatin (Lipitor) 20 MG tablet Take 1 (one) tablet by mouth once daily Active tolterodine (Detrol) 2 MG tabletIndications: Urinary Incontinence Take 1 (one) tablet by mouth 2 times daily Reasons: Urinary Incontinence 60 tablet 11 03/06/2024 Active Active Problems Problem Noted Date Diagnosed Date Nonrheumatic tricuspid valve regurgitation 03/23 Chronic HFrEF (heart failure with reduced ejection fraction) 03/03/2017 COPD (chronic obstructive pulmonary disease) DEVINE (dyspnea on exertion) 03/03/2017 Hypertension associated with diabetes 03/03/2017 Mixed diabetic hyperlipidemi a associated with type 2 diabetes mellitus 03/03/2017 Nonischemic cardiomyopathy 03/03/2017 Non-rheumatic mitral regurgitation 03/03/2017 Palpitations 03/03/2017 Pulmonary HTN 03/03/2017 Overweight (BMI 25.0-29.9) 12/18/2013 Adjustment disorder 03/02/2013 Fibroid 08/02/2011 MVP (mitral valve prolapse) 07/09/2011 Type II or unspecified type diabetes mellitus without mention of complication, not stated as uncontrolled 02/13/2008 Overview (02/13/2008): Nephropathy Screening for condition 02/13/2008 Overview (11/07/2014): Adult Abstraction Problem List Screening Mammogram: Result: Negative Date:09/08/06 Encounters Date Type Department Care Team Description 03/06/2024 11:00 AM HAND STONECUTTER Office Visit [facility] - Urology [address] [place] [address] [address] [place] [address] Clayton Celis MD Urgency incontinence (Primary Dx); Microscopic hematuria 03/06/2024 Travel 01/24/2024 Travel 12/16/2023 Travel from Last 3 Months Social History Tobacco Use Types Packs/Day Years Used Date Smoking Tobacco: Never Smokeless Tobacco: Never Tobacco Cessation:Counseling Given: Not Answered Alcohol Use Standard Drinks/Week Comments Never 0 (1 standard drink = 0.6 oz pur e alcohol) Sex and Gender Information Value Date Recorded Sex Assigned at Not on file Gender Identity Not on file Sexual Orientation Not on file Last Filed Vital Signs Vital Sign Reading Time Taken Comments Blood Pressure - - Pulse - - Temperature 36.6 ??C (97.9 ??F) 03/06/2024 11:[address] Respiratory Rate - - Oxygen Saturation - - Inhaled Oxygen Concentration - - Weight 97.1 kg (214 lb) 03/06/2024 11:29 AM HAND STONECUTTER Height 180.3 cm (5' 11 ) 03/06/2024 11:29 AM HAND STONECUTTER Body Mass Index 29.85 03/06/2024 11:29 AM HAND STONECUTTER Plan of Treatment Upcoming Encounters Date Type Department Care Team (Late st Contact Info) Description 07/17/2024 2:30 PM CDT Office Visit [facility] - Urology [address] [place] [address] Clayton Celis MD [address] [place] [address] Health Maintenance Due Date Last Done Comments COLOGUARD (AGES 45-75) - COL ON CA SCREENING 1961 COLON MONITORING 1961 COLONOSCOPY - COLON CA SCREENING 1961 CT COLONOGRAPHY - COLON CA SCREENING 1961 Colorectal Cancer Screening 1961 FIT - COLON CA SCREENING 1961 FLEX SIG - COLON CA SCREENING 1961 PAP SMEAR 1961 HIV SCREENING 1976 HEPATITIS C SCREENING 04/12/1979 DTAP/TDAP/TD VACCINES (1 - Tdap) 1980 PNEUMOCOCCAL VACCINE 50+ (1 of 2 - PCV) 1980 ZOSTER VACCINE (1 of 2) 04/17/2011 MAMMOGRAM 06/22/2013 06/23/2011, 06/23/2011 DIABETES-SERUM CREATININE 07/23/2020 07/24/2019 Respiratory Syncytial Virus (RSV) Vaccine Pt: or over 60 yrs (1 - Risk 60-74 years 1-dose series) 2021 DIABETES-FOOT EXAM WITH MONOFILAMENT 10/02/2021 DIABETES-HGB A1C 10/02/2021 COVID-19 VACCINE (1 - 2023-2 5 season) 2023 INFLUENZA VACCINE (#1) 2023 12/18/2013 DIABETES RETINOPATHY SCREENING 10/14/2023 0 10/13/2021, 10/02/2021, 10/02/2021 DEPRESSION SCREENING 02/08/2024 DIABETES - URINE PROTEIN SCREENING 02/08/2024 HEPATITIS B VACCINE Aged Out No longe r eligible based on patient's age to complete this topic HIB VACCINE Aged Out No longer eligi ble based on patient's age to complete this topic HPV VACCINE Aged Out No longer eligi ble based on patient's age to complete this topic MENINGOCOCCAL (Group B) VACCINE Aged Out No longer eligible b ased on patient's age to complete this topic MENINGOCOCCAL VACCINE Aged Out No bud christos eligible based on patient's age to complete this topic Procedures Procedure Name Priority Date/Time Associated Diagnosis Comments SD MSR PVR U&/BLADD CAPCTY US NON Routine 03/06/2024 11:52 AM HAND STONECUTTER Urgency incontinence URINALYSIS AUTO - POINT OF CARE (AMB) [facility] Routine 03/06/2024 11:42 AM HAND STONECUTTER Urgency incontinence CREATININE - POCT INTERFACED Routine 07/24/2019 7:10 AM CDT from Last 3 Months or Most Recently Relevant to Health Maintenance Results * SD MSR PVR U&/BLADD CAPCTY US NON (03/06/2024 11:52 AM HAND STONECUTTER) Narrative Juany Shepard CMA - 03/06/2024 11:52 AM HAND STONECUTTER Juany Shepard CMA ? 03/06/2024 ??1:08 PM Bladder Scan performed on 03/06/2024: Results showinML Clayton Celis MD PROCEDURE/MINOR S URGICAL ORDERABLES * URINALYSIS AUTO - POINT OF CARE (AMB) [facility] (03/06/2024 11:42 AM HAND STONECUTTER) Glucose UA neg [facility] [address] Bilirubin UA POCT neg [facility] [address] Ketones UA POCT neg [facility] [address] Specific Liberal UA 1.[address] [facility] [address] Blood Urine POCT 1+25ery/u l [facility] [address] pH UA 6.[address] [facility] [address] Protein UA 1+0.3g/l [facility] [address] Urobilinogen UA 3.5umol/l [facility] [address] Nitrite UA neg [facility] [address] WBC UA neg [facility] [address] Urine URINE / Unknown 03/06/2024 1 1:42 AM HAND STONECUTTER Clayton Celis MD LAB - POINT OF SC RE ORDERABLES [facility] [address] [place] [address], [facility] [phone] * CREATININE - POCT INTERFACED (07/24/2019 7:10 AM CDT) Creatinine POCT 0.6 0.3 - 1.3 mg/dL 07/24/2019 7:11 AM CDT [facility] Comment:Range ok for MRI eGFR >60 >60 mL/min/1.7 3 m2 07/24/2019 7:11 AM CDT [facility] Blood BLOOD SPECIMEN / Unknown 07/24/2019 7:10 AM CDT 07/24/2019 7:11 AM CDT Cesario Parekh MD LAB - POINT [facility] ARE ORDERABLES [facility] [address] [place] [address], [facility] [phone] from Last 3 Months or Most Recently Relevant to Health Maintenance Care Teams Campus Director Relationship Specialty Start Date End Date Chetan Orellana MD [address] [address] PCP - General Internal Medicine 03/06/24 Madison Ramos MD 03/01/16
--- OUTSIDE RECORDS SUMMARY | 2024-03-07 10:26 | XMS_ITS | Encounter Summary ---
Author Organization [facility] Address [address] [place] [address] Care Team Providers Care Key Carrier Name Role Phone Madison Ramos MD Unavailable [phone] Chetan Orellana MD Primary Care Provider [phone] Reason for Visit * Reason Comments Establish Care urinary incontinence Encounter Details Date Type Department Care Team (Late st Contact Info) Description 03/06/2024 11:00 AM FINISH MACHINE TENDER Office Visit [facility] - Urology [address] [place] [phone] Clayton Celis MD [address] [place] [phone] Urgency incontinence (Primary Dx); Microscopic hematuria Social History Tobacco Use Types Packs/Day Years [...] on file documented as of this encounter Last Filed Vital Signs Vital Sign Reading Time Taken Comments Blood Pressure - - Pulse - - Temperature 36.6 ??C (97.9 ??F) 03/06/2024 11:[address] Respiratory Rate - - Oxygen Saturation - - Inhaled Oxygen Concentration - - Weight 97.1 kg (214 lb) 03/06/2024 11:29 AM FINISH MACHINE TENDER Height 180.3 cm (5' 11 ) 03/06/2024 11:29 AM FINISH MACHINE TENDER Body Mass Index 29.85 03/06/2024 11:29 AM FINISH MACHINE TENDER documented in this encounter Progress Notes * Clayton Celis MD - 03/06/2024 11:57 AM CST [facility] Division of Urologic Surgery Clayton Celis MD Date of Visit: 03/06/2024 Patient Name: Corrie Nice : 1960 Medical Record: [id number] Contact Phone: There are no phone numbers on file. Age: [age] year old Sex: female Referring Physician: Jose Luis Light MD [address] [place] [address] Chief Complaint: Chief Complaint Patient presents with [facility] urinary incontinence Assessment/Plan: 63 year old female with the following issues: 1. Urgency incontinence Discussed first, second, and third line therapies for OAB/wet. She would like to trial medical therapy and I discussed this with her. Also discussed bladder diary given fluid consumption may over hydrate. Discussed r/b/a to medical therapy and she would like to proceed. - URINALYSIS AUTO - POINT OF CARE (AMB) [facility] - PROC BLADDER SCAN - tolterodine (Detrol) 2 MG tablet; Take 1 (one) tablet by mouth 2 times daily Reasons: Urinary Incontinence Dispense: 60 tablet; Refill: 11 2. Microscopic hematuria Discussed positive dipstick but will evaluate further with microscopic analysis before proceeding with complete workup. - URINALYSIS W/MICROSCOPIC NO CULTURE; Future Follow-up: 4 months History of Present Illness: The patient is a 63 year old female being seen today for new evaluation and treatment of urinary urgency incontinence. She has daily incontinence. Wears 2-3 ppd and they are soaked when changing. Large volume incontinence on the way to the bathroom. Denies UTI, hematuria, dysuria. Prior trial of oxybutynin and vibegron without significant change. Denies bulge, pressure in the vagina/pelvis. No prior pelvic surg. Rare constipation since started taking semaglutide. normal vaginal delivery. Denies kidney stone hx. Past Medical History; No past medical history on file. Past Surgical History: No past surgical history on file. Current Medications: Current Outpatient Medications Medication Sig Dispense Refill atorvastatin (Lipitor) 20 MG tablet Take 1 (one) tablet by mouth once daily JANUVIA 100 MG TABS Take 100 mg by mouth daily. lisinopril (PRINIVIL; ZESTRIL) 40 MG tablet Take 1 (one) tablet by mouth once daily metformin (GLUCOPHAGE) 500 MG tablet Take 500 mg by mouth daily. metoprolol succinate XL 24hr (Toprol XL) 50 MG tablet Take 1 (one) tablet by mouth once daily NECON (28) PO Take by mouth daily. Semaglutide (OZEMPIC, 2 MG/DOSE, SC) Inject 2 mg subcutaneously 3 times daily as needed No current facility-administered medications for this visit. Allergies; Multihance [gadobenate] Family History: No family history on file. Social History: Social History Socioeconomic History Marital status: Single Spouse name: Not on file Number of children: Not on file Years of education: Not on file Highest education level: Not on file Occupational History Not on file Tobacco Use Smoking status: Never Smokeless tobacco: Never Vaping Use Vaping status: Never Used Substance and Sexual Activity Alcohol use: Never Drug use: Never Sexual activity: Not Currently Other Topics Concern Not on file Social History Narrative Not on file Social Determinants of Health Financial Resource Strain: Not on file Food Insecurity: Not on file Transportation Needs: Not on file Stress: Not on file Housing Stability: Not on file Review of Systems: Review of Systems Constitutional: Negative. Genitourinary: Positive for frequency and urgency. Negative for hematuria. Physical Exam: Temp 97.9 ??F (36.6 ??C) (Temporal) Ht 1.803 m (5' 11 ) Wt 97.1 kg (214 lb) Physical Exam Constitutional: Appearance: Normal appearance. She is normal weight. HENT: Head: Normocephalic and atraumatic. Eyes: Extraocular Movements: Extraocular movements intact. Conjunctiva/sclera: Conjunctivae normal. Cardiovascular: Rate and Rhythm: Normal rate. Pulmonary: Effort: Pulmonary effort is normal. Abdominal: General: Abdomen is flat. Tenderness: There is no right CVA tenderness or left CVA tenderness. Genitourinary: Comments: deferred Neurological: General: No focal deficit present. Mental Status: She is alert. Laboratory Studies: Lab results smartLinks are not currently available Recent Labs Component Name 03/06/24 1142 PROTEINUA 1+0.3g/l UROBILINUA 3.5umol/l Imaging (studies personally reviewed): none Uroflow Results Post-void residual via bladder scan: 25 mL Clayton Celis MD 03/06/2024 11:58 AM SH MACHINE TENDER documented in this encounter Procedure Notes * Juany Shepard CMA - 03/06/2024 11:52 AM CSTAssociated Order(s): PROC BLADDER SCAN Procedure(s): ID MSR PVR U&/BLADD CAPCTY US NON Pre-Procedure Diagnose(s): Urgency incontinence Bladder Scan performed on 03/06/2024: Results showinML SH MACHINE TENDER documented in this encounter Plan of Treatment Upcoming Encounters Date Type Department Care Team (Late st Contact Info) Description 07/17/2024 2:30 PM CDT Office Visit [facility] - Urology [address] [place] [phone] Clayton Celis MD [address] [place] [address] Scheduled Orders Name Type Priority Associated Diagnoses Orde r Schedule URINALYSIS W/MICROSCOPIC NO CULTURE Lab Routine Urgency incontinence Microscopic hematuria 1 Occurrences starting 03/06/2024 until 03/31/2025 documented as of this encounter Procedures Procedure Name Priority Date/Time Associated Diagnosis Comments ID MSR PVR U&/BLADD CAPCTY US NON Routine 03/06/2024 11:52 AM FINISH MACHINE TENDER Urgency incontinence URINALYSIS AUTO - POINT OF CARE (AMB) [facility] Routine 03/06/2024 11:42 AM FINISH MACHINE TENDER Urgency incontinence documented in this encounter Results * ID MSR PVR U&/BLADD CAPCTY US NON (03/06/2024 11:52 AM FINISH MACHINE TENDER) Narrative Juany Shepard CMA - 03/06/2024 11:52 AM FINISH MACHINE TENDER Juany Shepard CMA ? 03/06/2024 ??1:08 PM Bladder Scan performed on 03/06/2024: Results showinML Clayton Celis MD PROCEDURE/MINOR S URGICAL ORDERABLES * URINALYSIS AUTO - POINT OF CARE (AMB) [facility] (03/06/2024 11:42 AM FINISH MACHINE TENDER) Glucose UA neg [facility] [address] Bilirubin UA POCT neg [facility] [address] Ketones UA POCT neg [facility] [address] Specific [place] UA 1.[address] [facility] [address] Blood Urine POCT 1+25ery/u l [facility] [address] pH UA 6.[address] [facility] [address] Protein UA 1+0.3g/l [facility] [address] Urobilinogen UA 3.5umol/l [facility] [address] Nitrite UA neg [facility] [address] WBC UA neg [facility] [address] Urine URINE / Unknown 03/06/2024 1 1:42 AM FINISH MACHINE TENDER Clayton Celis MD LAB - POINT OF CA RE ORDERABLES [facility] [address] [place] [address], [place] [phone] documented in this encounter Visit Diagnoses Diagnosis Urgency incontinence- Primary Urge incontinence Microscopic hematuria documented in this encounter Care Teams Key Carrier Relationship Specialty Start Date End Date Chetan Orellana MD [address] [place] [address] [address] [place] [id number] PCP - General Internal Medicine 03/06/24 Madison Ramos MD 03/01/16 documented as of this encounter
--- OUTSIDE RECORDS SUMMARY | 2024-03-07 10:26 | XMS_ITS | Encounter Summary ---
Author Organization [facility] Address [address] [place] [address] Care Team Providers Care Wire Coater Name Role Phone Jose Luis Light MD Primary Care Provider + [phone] Madison Ramos MD Unavailable [phone] Chetan Orellana MD Primary Care Provider + [phone] Reason for Visit * Reason Onset Date Comments Nurse Only 10/20/2021 Encounter Details Date Type Department Care Team (Late st Contact Info) Description 10/20/2021 Telephone [facility] [address] [place] [phone] Frederick Grimm MD [address] [place] [address] [place] [address] Nurse Only Social History Tobacco Use Types Packs/Day Years Used Date Smoking Tobacco: Never Assessed Sex and Gender Information Value Date Recorded Sex Assigned at Not on file Gender Identity Not on file Sexual Orientation Not on file documented as of this encounter Miscellaneous Notes * Telephone Encounter - Osiris Gibson - 10/20/2021 2:22 PM CDT Pt is calling to see if her referral is in place for her appt 10/22 documented in this encounter Plan of Treatment Upcoming Encounters Date Type Department Care Team (Late st Contact Info) Description 07/17/2024 2:30 PM CDT Office Visit [facility] - Urology [address] [place] [phone] Clayton Celis MD [address] [place] [phone] documented as of this encounter Visit Diagnoses Not on filedocumented in this encounter Care Teams Wire Coater Relationship Specialty Start Date End Date Jose Luis Light MD [address] [place] [phone] PCP - General 03/01/16 03/05/24 Chetan Orellana MD [address] [place], [place] [phone] PCP - General Internal Medicine 03/06/24 Madison Ramos MD [address] [place] [phone] 03/01/16 documented as of this encounter
--- OUTSIDE RECORDS SUMMARY | 2024-03-07 10:26 | XMS_ITS | Patient Health Summary ---
Author Organization [facility] Address [address] [place] [address] Care Team Providers Care X Ray Equipment Servicer Name Role Phone Madison Ramos MD Unavailable [phone] Cehtan Orellana MD Primary Care Provider [phone] Note from [facility],non-owned Affiliates and Associated Physician Practices is amultiple site organization consisting of ambulatory clinics and hospital sitesin [place], [place], [place] and [place]. This disclosure is being madepursuant to the Care Everywhere program and may not contain all information available regarding this patient. Last updated 17.[facility] Allergies * Gadobenate(Itching,Nausea and/or Vomiting) Medications * Be aware that medications may not be up to date on this document. Alwaysverify current medications with the patient. * lisinopril (PRINIVIL; ZESTRIL) 40 MG tablet Take 1 (one) tablet by mouth once daily * JANUVIA 100 MG TABS Take 100 mg by mouth daily. * metformin (GLUCOPHAGE) 500 MG tablet Take 500 mg by mouth daily. * NECON (28) PO Take by mouth daily. * Semaglutide (OZEMPIC, 2 MG/DOSE, SC)(Started 02/07/2023) Inject 2 mg subcutaneously 3 times daily as needed * metoprolol succinate XL 24hr (Toprol XL) 50 MG tablet Take 1 (one) tablet by mouth once daily * atorvastatin (Lipitor) 20 MG tablet Take 1 (one) tablet by mouth once daily * tolterodine (Detrol) 2 MG tablet(Started 03/06/2024) Take 1 (one) tablet by mouth 2 times daily Reasons: Urinary Incontinence 11 refills by 03/06/2025 Active Problems Problem Noted Date Diagnosed Date [...] of complication, not stated as uncontrolled 02/13/2008 Screening for condition 02/13/2008 Social History Tobacco Use Types Packs/Day Years [...] 97.1 kg (214 lb) 03/06/2024 11:29 AM CATERING CONVENTION SERVICES MANAGER Height 180.3 cm (5' 11 ) 03/06/2024 11:29 AM CATERING CONVENTION SERVICES MANAGER Body Mass Index 29.85 03/06/2024 11:29 AM CATERING CONVENTION SERVICES MANAGER Procedures * DE MSR PVR U&/BLADD CAPCTY US NON(Performed 03/06/2024) Performed for Urgency incontinence * URINALYSIS AUTO - POINT OF CARE (AMB) [facility](Performed 03/06/2024) Performed for Urgency incontinence * MRI CARDIAC STUDY WWO CONTRAST(Performed 07/24/2019) Performed for Cardiomyopathy, unspecified type (HCC), Chronic combined systolic and diastolic heartfailure (HCC), Non-ischemic cardiomyopathy (HCC) * CREATININE - POCT INTERFACED(Performed 07/24/2019) * DERMATOPATHOLOGY(Performed 08/07/2015) Results * DE MSR PVR U&/BLADD CAPCTY US NON (03/06/2024 11:52 AM CATERING CONVENTION SERVICES MANAGER) Narrative Juany Shepard CMA - 03/06/2024 11:52 AM CATERING CONVENTION SERVICES MANAGER Juany Shepard CMA ? 03/06/2024 ??1:08 PM Bladder Scan performed on 03/06/2024: Results showinML Clayton Celis MD PROCEDURE/MINOR S URGICAL ORDERABLES * URINALYSIS AUTO - POINT OF CARE (AMB) [facility] (03/06/2024 11:42 AM CATERING CONVENTION SERVICES MANAGER) Glucose UA neg [facility] [address] Bilirubin UA POCT neg [facility] [address] Ketones UA POCT neg [facility] [address] Specific [place] UA 1.[address] [facility] [address] Blood Urine POCT 1+25ery/u l [facility] [address] pH UA 6.[address] [facility] [address] Protein UA 1+0.3g/l [facility] [address] Urobilinogen UA 3.5umol/l [facility] [address] Nitrite UA neg [facility] [address] WBC UA neg [facility] [address] Urine URINE / Unknown 03/06/2024 1 1:42 AM CATERING CONVENTION SERVICES MANAGER Clayton Celis MD LAB - POINT OF CA RE ORDERABLES [facility] [address] [place] [address], [facility] [phone] * MRI CARDIAC STUDY WWO CONTRAST (07/24/2019 9:36 AM CDT) Anatomical Region Laterality Modality Chest Magnetic Resonan ce 07/24/2019 12:4 6 PM CDT Impressions 07/24/2019 3:31 PM CDT IMPRESSION: 1. No evidence of delayed myocardial enhancement. 2. Mild mitral regurgitation and minimal aortic regurgitation. 3. Moderate dilation of the left atrium and mild dilation of the left ventricle. 4. Ejection fraction: 38.2% Dictated by Arminda Abrams MD (client services vice president). I, Dr. FREYA NGUYEN M.D. have personally reviewed and interpreted this examination/study. This report was electronically signed by FREYA NGUYEN M.D. ??on 07/24/2019 3:31 PM . Narrative 07/24/2019 3:31 PM CDT EXAMINATION: Magnetic resonance imaging (MRI) of the heart without and with contrast HISTORY: Cardiomyopathy, concern for infiltrative process TECHNIQUE: MRI of the heart was performed prior to and following the uneventful administration of 40 mL intravenous MultiHance contrast according to a custom protocol monitored by the radiologist. Creatinine: 0.6 mg/dL COMPARISON: No prior study is available for comparison. FINDINGS: Morphology: A left aortic arch is present. The visible aorta and pulmonary artery are normal in course and caliber. The right ventricle is normal in size without evidence of focal wall motion abnormality. The left ventricle is mildly dilated without evidence of focal wall motion abnormality. The left atrium is moderately dilated. No pericardial effusion is seen. No evidence of delayed myocardial enhancement. Valves: There is mild mitral regurgitation and minimal aortic regurgitation. The pulmonic and tricuspid valves are normal. Left ventricular function is as follows: Ejection fraction 38.2% End-diastolic volume 120.2 mL (corrected 51.5 mL) End-systolic volume 74.3 mL (corrected 31.8 mL) Stroke-volume 45.9 mL (corrected 19.7 mL) Noncardiac findings: The visible lungs are clear. There is no mediastinal lymphadenopathy. Procedure Note Freya Nguyen MD - 07/24/2019 EXAMINATION: Magnetic resonance imaging (MRI) of the heart without and with contrast HISTORY: Cardiomyopathy, concern for infiltrative process TECHNIQUE: MRI of the heart was performed prior to and following the uneventful administration of 40 mL intravenous MultiHance contrast according to a custom protocol monitored by the radiologist. Creatinine: 0.6 mg/dL COMPARISON: No prior study is available for comparison. FINDINGS: Morphology: A left aortic arch is present. The visible aorta andpulmonary artery are normal in course and caliber. The right ventricle is normalin size without evidence of focal wall motion abnormality. The leftventricle is mildly dilated without evidence of focal wall motion abnormality. The left atrium is moderately dilated. No pericardial effusion is seen. No evidence of delayed myocardial enhancement. Valves: There is mild mitral regurgitation and minimal aortic regurgitation. The pulmonic and tricuspid valves are normal. Left ventricular function is as follows: Ejection fraction 38.2% End-diastolic volume 120.2 mL (corrected 51.5 mL) End-systolic volume 74.3 mL (corrected 31.8 mL) Stroke-volume 45.9 mL (corrected 19.7 mL) Noncardiac findings: The visible lungs are clear. There is nomediastinal lymphadenopathy. IMPRESSION: 1. No evidence of delayed myocardial enhancement. 2. Mild mitral regurgitation and minimal aortic regurgitation. 3. Moderate dilation of the left atrium and mild dilation of the left ventricle. 4. Ejection fraction: 38.2% Dictated by Arminda Abrams MD (client services vice president). I, Dr. FREYA NGUYEN M.D. have personally reviewed and interpreted this examination/study. This report was electronically signed by FREYA NGUYEN M.D. on07/24/2019 3:31 PM . Cesario Parekh MD MR ORDERABLES * CREATININE - POCT INTERFACED (07/24/2019 7:10 AM CDT) Creatinine POCT 0.6 0.3 - 1.3 mg/dL 07/24/2019 7:11 AM CDT [facility] Comment:Range ok for MRI eGFR >60 >60 mL/min/1.7 3 m2 07/24/2019 7:11 AM CDT [facility] Blood BLOOD SPECIMEN / Unknown 07/24/2019 7:10 AM CDT 07/24/2019 7:11 AM CDT Cesario Parekh MD LAB - POINT OF C ARE ORDERABLES [address] [address], [facility] [phone] * PATHOLOGY TISSUE FOR DERMATOLOGY (08/07/2015 12:00 AM CDT) Result CASE: [id number] PATIENT: ABRAHAM TELLES PATHOLOGIC DIAGNOSIS: Left FA: SUPERFICAL TO MID PERIVASCULAR LYMPHOCYTIC INFILTRATE (see microscopic description and comment) CLINICAL DATA: LP vs ACD polygonal purple itchy papule. GROSS DESCRIPTION: Received is one formalin filled container labeled with the patients name and designated left FA. The specimen consists of a punch measuring [id number]. Jar 0. MICROSCOPIC DESCRIPTION: There is compact orthokeratosis and very mild spongiosis of the epidermis. ??In the dermis there is a superfical to mid, wedge shaped lymphoid infiltrate. Scattered large cells are appreciated, some of which show mitotic figures. A CD30 highlights many of the larger cells with CD68 also highlighting a few of the larger cells. A CD3 shows highlights the majority of the cells. There is a mix of CD4 positive cells and CD8 positive cells with a ration of around 4-5:1. CD4 appears to highlight the larger cells as well. CD1a highlights scattered Langerhans cells. MUM-1 stains some of the scattered larger cells. [place] methenamine silver (GMS) stain fails to highlight fungal elements in the available sections. Additional deeper sections were obtained and reviewed. COMMENT: ??This is an interesting case. Additional clinical history including clinical photographs is obtained from Dr. Kiana Manzano. ??The histological differential diagnosis includes a chronic eczematous dermatitis with superimposed lichen simplex chronicus changes, an old lesion of an arthropod bite reaction (especially give the wedge shape of the infiltrate), and less likely lymphomatoid papulosis. This case was also reviewed by Dr. Becky Marvin who agrees with the diagnosis. Electronically signed out by Margaret Thornton M.D., PhD. 08/18/2015 12:13:04PM [facility] Comment: Performed at: Dermatopathology Laboratory [facility] - Department of Dermatology [address] [place] [address], 5th [place] [address] Phone number: [phone] FAX: [phone] 08/07/2015 08/08/2015 Kiana Manzano MD LAB - PATHOLOGY/CYTO LOGY ORDERABLES [facility] [address] [place] [address], [facility] [phone] Care Teams X Ray Equipment Servicer Relationship Specialty Start Date End Date Chetan Orellana MD [address] [place] [address] [address] [place] [address] PCP - General Internal Medicine 03/06/24 Madison Ramos MD 03/01/16
--- OUTSIDE RECORDS SUMMARY | 2024-03-07 10:26 | XMS_ITS | Referral Summary ---
Author Organization [facility] [place] Address [address] [place] [address] Care Team Providers Care Analytics Senior Manager Name Role Phone Madison Ramos MD Unavailable [phone] Chetan Orellana MD Primary Care Provider [phone] Source Comments [facility],non-owned Affiliates and Associated Physician Practices is amultiple site organization consisting of ambulatory clinics and hospital sitesin [place], [place], [place] and [place]. This disclosure is being madepursuant to the Care Everywhere program and may not contain all information available regarding this patient. Last updated 17.[facility] Encounters Date Type Department Care Team Description 03/06/2024 Travel 03/06/2024 11:00 AM CARDIOLOGY PHYSICIAN ASSISTANT Office Visit [facility] - Urology [address] [place] [address] [address] [place] [address] Clayton Celis MD Urgency incontinence (Primary Dx); Microscopic hematuria 01/24/2024 Travel 12/16/2023 Travel from Last 3 Months Allergies Active Allergy [...] Problem List Screening Mammogram: Result: Negative Date:09/08/06 Social History Tobacco Use Types Packs/Day Years [...] 97.1 kg (214 lb) 03/06/2024 11:29 AM CARDIOLOGY PHYSICIAN ASSISTANT Height 180.3 cm (5' 11 ) 03/06/2024 11:29 AM CARDIOLOGY PHYSICIAN ASSISTANT Body Mass Index 29.85 03/06/2024 11:29 AM CARDIOLOGY PHYSICIAN ASSISTANT Plan of Treatment Upcoming Encounters Date Type Department Care Team (Late st Contact Info) Description 07/17/2024 2:30 PM CDT Office Visit [facility] - Urology [address] [place] [address] Clayton Celis MD [address] [facility] [address] [place] [address] Procedures Procedure Name Priority Date/Time Associated Diagnosis Comments [place] MSR PVR U&/BLADD CAPCTY US NON Routine 03/06/2024 11:52 AM CARDIOLOGY PHYSICIAN ASSISTANT Urgency incontinence URINALYSIS AUTO - POINT OF CARE (AMB) [facility] Routine 03/06/2024 11:42 AM CARDIOLOGY PHYSICIAN ASSISTANT Urgency incontinence CREATININE - POCT INTERFACED Routine 07/24/2019 7:10 AM CDT from Last 3 Months or Most Recently Relevant to Health Maintenance Results * [place] MSR PVR U&/BLADD CAPCTY US NON (03/06/2024 11:52 AM CARDIOLOGY PHYSICIAN ASSISTANT) Narrative Juany Shepard CMA - 03/06/2024 11:52 AM CARDIOLOGY PHYSICIAN ASSISTANT Juany Shepard CMA ? 03/06/2024 ??1:08 PM Bladder Scan performed on 03/06/2024: Results showinML Clayton Celis MD PROCEDURE/MINOR S URGICAL ORDERABLES * URINALYSIS AUTO - POINT OF CARE (AMB) [facility] (03/06/2024 11:42 AM CARDIOLOGY PHYSICIAN ASSISTANT) Glucose UA neg [facility] [address] Bilirubin UA POCT neg [facility] [address] Ketones UA POCT neg [facility] [address] Specific [place] UA 1.[address] [facility] [address] Blood Urine POCT 1+25ery/u l [facility] [address] pH UA 6.[address] [facility] [address] Protein UA 1+0.3g/l [facility] [address] Urobilinogen UA 3.5umol/l [facility] [address] Nitrite UA neg [facility] [address] WBC UA neg [facility] [address] Urine URINE / Unknown 03/06/2024 1 1:42 AM CARDIOLOGY PHYSICIAN ASSISTANT Clayton Celis MD LAB - POINT OF [place] RE ORDERABLES [facility] [address] [place] [address], [facility] [phone] * CREATININE - POCT INTERFACED (07/24/2019 7:10 AM CDT) Creatinine POCT 0.6 0.3 - 1.3 mg/dL 07/24/2019 7:11 AM CDT [facility] Comment:Range ok for MRI eGFR >60 >60 mL/min/1.7 3 m2 07/24/2019 7:11 AM CDT [facility] Blood BLOOD SPECIMEN / Unknown 07/24/2019 7:10 AM CDT 07/24/2019 7:11 AM CDT Cesario Parekh MD LAB - POINT OF ARE ORDERABLES [facility] [address] [place] [address], [facility] [phone] from Last 3 Months or Most Recently Relevant to Health Maintenance Care Teams Analytics Senior Manager Relationship Specialty Start Date End Date Chetan Orellana MD [address] [address] PCP - General Internal Medicine 03/06/24 Madison Ramos MD 03/01/16
== END 2024-03-07 09:43 | disposition home or self-care (01) ==
LOC: ANHIMG 09:44
PROVIDERS: PCP Emergency Medicine; Visit Provider Emergency Medicine
DX: Z12.31 Encounter for screening mammogram for malignant neoplasm of breast (principal)
CPT/HCPCS: 77063; 77067

== ENCOUNTER 2024-10-09 07:23 | Outpatient (CLI) | payer BC, SELFPAY ==
--- NOTE | ~2024-10-09 | NM_ITS ---
EXAMINATION: NM lio stress w perfusion DATE: 10/09/2024 09:57 INDICATION: Left arm pain TECHNIQUE: Rest images were obtained following intravenous administration of 11.1 mCi Tc99m tetrofosmin (Myoview). The patient was infused intravenously with Lexiscan (Regadenoson). Then, 35.0 mCi Tc99m tetrofosmin (Myoview) was administered intravenously, and stress images were obtained. Data was tj nstructed into short axis and horizontal and vertical long axis SPECT images. Gated SPECT images were also obtained. COMPARISON: None. FINDINGS: There is a moderate-sized region of mild to moderate reversible decreased perfusion involving the mid and basilar inferior and mid and basilar inferolateral segments consistent with ischemia in the right coronary artery vascular distribution. There is an additional large mild to moderate severity partially reversible perfusion defect involving the apical, mid and basilar anterior and mid and basilar anterolateral segments consistent with ischemia involving both the left anterior descending and circumflex coronary artery vascular distributions. This includes a small mild nonreversible infarct of the apical and mid anterior segments. There is mild left ventricular enlargement with calculated end-diastolic volume of 214 mL. There is mild diffuse hypokinesis with mild to moderately decreased left ventricular ejection fraction measuring 36%. IMPRESSION: 1. Moderate-sized region of mild to moderate reversible ischemia in the right coronary artery vascular distribution and second large region of predominantly reversible ischemia in the left anterior descending and circumflex coronary artery vascular distributions superimposed over a small mild nonreversible infarct at the apical anterior and mid anterior segments. 2. Left ventricular enlargement with mild to moderately decreased left ventricular ejection measuring 36%. Reviewed, dictated and finalized at location A. IMPRESSION: 1. Moderate-sized region of mild to moderate reversible ischemia in the right c oronary artery vascular distribution and second large region of predominantly r eversible ischemia in the left anterior descending and circumflex coronary edyta ry vascular distributions superimposed over a small mild nonreversible infarct at the apical anterior and mid anterior segments. 2. Left ventricular enlargement with mild to moderately decreased left ventricu lar ejection measuring 36%.
--- OUTSIDE RECORDS SUMMARY | 2024-10-09 07:33 | XMS_ITS | Clinical Summary ---
Author Organization [facility] Address [address] [place] [address] Care Team Providers Care Instructor Modeling Name Role Phone Pablo Gupta Primary Care Provider [phone] Allergies Active Allergy Reactions Criticality Noted Date Comments Gadobenate Dimeglumine Itching,Nausea An d Vomiting Low 07/24/2019 Patient became nauseated from Multihance. Became itchy later Medications metFORMIN (GLUCOPHAGE) 1,000 mg [...] Pulmonary HTN 03/03/2017 Chronic heart failure with preserved ejection fr action 03/03/2017 Mixed diabetic hyperlipidemi a associated with type 2 diabetes mellitus (CMS/[facility]) 03/03/2017 Palpitations 03/03/2017 Surgical History Surgery Date Site/Laterality Comments BREAST BIOPSY Medical History Medical History Date Comments Hypertension Valvular disease Hyperlipidemia Diabetes mellitus (HCC) CHF (congestive heart failure) ([facility]) Family History Medical History Relation Name Comments [...] on file Legal Sex Female 11:20 AM FIREBREAK CUTTER Gender Identity Not on file Sexual Orientation Not on file Obstetrics History Last Filed Vital Signs Vital Sign Reading Time Taken Comments Blood Pressure 144/80 01/09/2024 2:25 PM FIREBREAK CUTTER Pulse 83 01/09/2024 2:25 PM FIREBREAK CUTTER Temperature 37 C (98.6 F) 11/09/2021 4:37 PM CDT Respiratory Rate 16 12/11/2021 2:07 PM CDT Oxygen Saturation 94% 01/09/2024 2:25 PM FIREBREAK CUTTER Inhaled Oxygen Concentration - - Weight 98.9 kg (218 lb) 01/09/2024 2:25 PM FIREBREAK CUTTER Height 182.9 cm (6') 01/09/2024 2:25 PM FIREBREAK CUTTER Body Mass Index 29.57 01/09/2024 2:25 PM FIREBREAK CUTTER Plan of Treatment Health Maintenance Due Date Last Done Comments Albumin Creatinine Ratio, Urine 1961 Breast Cancer Screening-Mammogram 1961 Cervical Cancer Screening 1961 Colon Cancer Screening-Colonoscopy 1961 Depression Screening 1961 Hemoglobin A1C 1961 Hepatitis C Screening 1961 Dilated Eye Exam 1961 Foot Exam 1961 DTaP/Tdap/Td Vaccine (1 - Tdap) 1972 Hepatitis B Screening 04/17/1979 Regular Well Visit/Exam 18-64 04/17/1979 Pneumococcal vaccine <65 (1 of 2 - PCV) 1980 Zoster Vaccine (1 of 2) 04/17/2011 eGFR 02/27/2021 02/28/2020 Lipid Panel 09/18/2022 09/18/2021, 05/0 08/2020, 06/29/2019, Additional history exists Covid-19 Vaccine (3 - 2023-2 5 season) 2023 05/14/2020, 04/14/2020 Influenza Vaccine (#1) 2024 , 01/18/2018, 12/18/2013, Additional history exists Procedures Procedure Name Priority Date/Time Associated Diagnosis Comments POCT LIPID PANEL Routine 09/18/2021 3:12 PM CDT Mixed diabetic hyperlipidemia associated with type 2 diabetes mellitus (HCC) EGFR Routine 02/28/2020 3:04 PM FIREBREAK CUTTER Nonischemic cardiomyopathy (HCC) from Last 3 Months or Most Recently [...] Final Result * eGFR (02/28/2020 3:04 PM FIREBREAK CUTTER) eGFR 77 mL/min/1.7 3 m2 [facility] Comment: Interpretive Data Reference Interval Normal >/= 90 mL/min/1.73m2 Mildly decreased* 60 - 89 mL/min/1.73m2 Mildly to moderately decreased 45 - 59 mL/min/1.73m2 Moderately to severely decreased 30 - 44 mL/min/1.73m2 Severely decreased 15 - 29 mL/min/1.73m2 Kidney Failure < 15 mL/min/1.73m2 *Relative to young adult level Estimated glomerular [...] was last reviewed 2020 [facility] [address] Blood specimen (specimen) 02/28/2020 3:04 PM FIREBREAK CUTTER 02/28/2020 3:04 PM FIREBREAK CUTTER Cesario Parekh MD LAB BLOOD ORDERABLES Fin al Result [facility] [id number] Department [place] [address] from Last 3 Months or Most Recently Relevant to Health Maintenance [facility] [place] [address] [facility] Care Teams Instructor Modeling Relationship Specialty Start Date End Date Pablo Gupta DO PCP - General Family Medicine 09/18/21
--- OUTSIDE RECORDS SUMMARY | 2024-10-09 07:33 | XMS_ITS | Encounter Summary ---
Author Organization [facility] Address [address] [facility] [place] [address] Care Team Providers Care Inweaver Name Role Phone Jose Luis Light MD Primary Care Provider [phone] Madison Ramos MD Unavailable [phone] Chetan Orellana MD Primary Care Provider [phone] Reason for Visit * Reason Onset Date Comments Nurse Only 10/20/2021 Encounter Details Date Type Department Care Team (Late st Contact Info) Description 10/20/2021 Telephone [facility] [address] [place] [phone] Frederick Grimm MD [address] [place] [address] [place] [address] Nurse Only Social History Tobacco Use Types Packs/Day Years Used Date Smoking Tobacco: Never Assessed Comments Unknown Sex and Gender Information Value Date Recorded Sex Assigned at Not on file Legal Sex Female 4:25 AM INSPECTOR PAWNSHOP DETAIL Gender Identity Not on file Sexual Orientation Not on file documented as of this encounter Miscellaneous Notes * Telephone Encounter - Osiris Gibson - 10/20/2021 2:22 PM CDT Pt is calling to see if her referral is in place for her appt 10/22 documented in this encounter Plan of Treatment Upcoming Encounters Date Type Department Care Team (Late st Contact Info) Description 10/15/2024 2:00 PM CDT Clinical Support [facility]rology [address] [place] [phone] Bryce Mathew PA [address] [place] [address] 10/22/2024 2:00 PM CDT Clinical Support [facility] [address] [place] [phone] Bryce Mathew PA [facility] [place] [address] 10/29/2024 2:00 PM CDT Clinical Support [facility] [address] [place] [address] Bryce Mathew PA [address] [place] [phone] 11/05/2024 2:00 PM CDT Clinical Support [facility] [address] [place] [address] Bryce Mathew PA [facility] [place] [address] 11/12/2024 2:00 PM CDT Clinical Support [facility] [address] [place] [phone] Bryce Mathew PA [address] [place] [phone] 11/19/2024 2:00 PM CDT Clinical Support [facility] [address] [place] [address] Bryce Mathew PA [address] [place] [address] 11/26/2024 2:20 PM CDT Clinical Support [facility] [address] [place] [address] Bryce Mathew PA [address] [place] [address] 12/03/2024 2:00 PM CDT Clinical Support [facility] [address] [place] [address] Bryce Mathew PA [facility] [place] [address] 12/10/2024 2:00 PM INSPECTOR PAWNSHOP DETAIL Clinical Support [facility] [address] [place] [address] Bryce Mathew PA [facility] [place] [address] 12/17/2024 2:00 PM INSPECTOR PAWNSHOP DETAIL Clinical Support [facility] [address] [place] [address] Bryce Mathew PA [address] [place] [address] 12/24/2024 2:00 PM INSPECTOR PAWNSHOP DETAIL Clinical Support [facility] [address] [place] [address] Bryce Mathew PA [address] [place] [address] 01/22/2025 2:45 PM INSPECTOR PAWNSHOP DETAIL Office Visit [facility] [address] [facility] [address] [place] [address] Clayton Celis MD [address] [place] [address] documented as of this encounter Visit Diagnoses Not on filedocumented in this encounter Care Teams Inweaver Relationship Specialty Start Date End Date Jose Luis Light MD [address] [place] [phone] PCP - General 03/01/16 03/05/24 Chetan Orellana MD [address] [place] [address] [address] [place], [place] [id number] PCP - General Internal Medicine 03/06/24 Madison Ramos MD [address] [place] [address] 03/01/16 documented as of this encounter
--- OUTSIDE RECORDS SUMMARY | 2024-10-09 07:33 | XMS_ITS | Clinical Summary ---
Author Organization [facility] Address [address] [place] [address] Care Team Providers Care Knitting Tester Name Role Phone Madison Ramos MD Unavailable [phone] Chetan Orellana MD Primary Care Provider [phone] Source Comments [facility],non-owned Affiliates and Associated Physician Practices is amultiple site organization consisting of ambulatory clinics and hospital sitesin [place], [place], [place] and [place]. This disclosure is being madepursuant to the Care Everywhere program and may not contain all information available regarding this patient. Last updated 17.[facility] Allergies Active Allergy Reactions Criticality Noted Date Comments Gadobenate Itching,Nausea and/o r Vomiting 07/24/2019 Patient became nauseated from Multihance. Became itchy later Medications * Be aware that medications may not be up to date on this document. Alwaysverify current medications with the patient. lisinopril (PRINIVIL; ZESTRIL) 40 MG tablet Take 1 (one) tablet by mouth once daily Active JANUVIA 100 MG TABS Take 100 mg by mouth daily. Active metformin (GLUCOPHAGE) 500 MG tablet Take 500 mg by mouth daily. Active NECON (28) PO Take by mouth daily. Active Semaglutide (OZEMPIC, 2 MG/DOSE, SC) Inject 2 mg subcutaneously 3 times daily as needed 02/07/19 24 Active metoprolol succinate XL 24hr (Toprol XL) 50 MG tablet Take 1 (one) tablet by mouth once daily Active atorvastatin (Lipitor) 20 MG tablet Take 1 (one) tablet by mouth once daily Active mirabegron ER 24hr (Myrbetriq) 50 MG tabletIndication s:Urinary Incontinence Take 1 (one) tablet by mouth once daily Reasons: Urinary Incontinence 30 tablet 09/19/19 25 Active tolterodine (Detrol) 2 MG tabletIndication s:Urinary Incontinence Take 1 (one) tablet by mouth 2 times daily Reasons: Urinary Incontinence 60 tablet 03/06/19 025 Discontin ued(Tx Complete) Active Problems Problem Noted Date Diagnosed Date [...] Encounters Date Type Department Care Team Description 09/19/2024 Results Follow-Up [facility] - Urology [address] [place] [address] [address] [place] [address] Clayton Celis MD 09/18/2024 3:30 PM CDT Office Visit [facility] [address] [place] [address] [address] [place] [phone] Clayton Celis MD Urgency incontinence (Primary Dx) 09/18/2024 Travel 07/30/2024 Travel from Last 3 Months Social History Tobacco Use Types Packs/Day Years Used Date Smoking Tobacco: Never Smokeless Tobacco: Never Tobacco Cessation:Counseling Given: Not Answered Alcohol Use Standard Drinks/Week Comments Never 0 (1 standard drink = 0.6 oz pur e alcohol) PHQ-2 Answer Date Recorded Patient Health Questionnaire-2 Score 0 09/18/2024 Comments Unknown Sex and Gender Information Value Date Recorded Sex Assigned at Not on file Legal Sex Female 4:25 AM 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 MACHINIST 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 Gender Identity Not on file Sexual Orientation Not on file Last Filed Vital Signs Vital Sign Reading Time Taken Comments Blood Pressure 135/75 09/18/2024 3:37 PM CDT Pulse 93 09/18/2024 3:37 PM CDT Temperature 36.6 C (97.8 F) 09/18/2024 3:37 PM CDT Respiratory Rate 18 09/18/2024 3:37 PM CDT Oxygen Saturation 98% 09/18/2024 3:37 PM CDT Inhaled Oxygen Concentration - - Weight 95.6 kg (210 lb 12.8 oz) 09/18/2024 3:37 PM CDT Height 180.3 cm (5' 11) 09/18/2024 3:37 PM CDT Body Mass Index 29.4 09/18/2024 3:37 PM CDT Plan of Treatment Upcoming Encounters Date Type Department Care Team (Late st Contact Info) Description 10/15/2024 2:00 PM CDT Clinical Support [facility] - Urology [address] [place] [phone] Bryce Mathew PA [address] [place] [phone] 10/22/2024 2:00 PM CDT Clinical Support [facility] - [facility]rology [address] [place] [phone] Bryce Mathew PA [address] [place] [address] 10/29/2024 2:00 PM CDT Clinical Support [facility] [address] [place] [phone] Bryce Mathew PA [address] [place] [address] 11/05/2024 2:00 PM CDT Clinical Support [facility] [address] [place] [phone] Bryce Mathew PA [address] [place] [address] 11/12/2024 2:00 PM CDT Clinical Support [facility] [address] [place] [phone] Bryce Mathew PA [address] [place] [address] 11/19/2024 2:00 PM CDT Clinical Support [facility] [address] [place] [phone] Bryce Mathew PA [address] [place] [address] 11/26/2024 2:20 PM CDT Clinical Support [facility] [address] [place] [phone] Bryce Mathew PA [address] [place] [address] 12/03/2024 2:00 PM CDT Clinical Support [facility] [address] [place] [phone] Bryce Mathew PA [address] [place] [address] 12/10/2024 2:00 PM OUTSIDE MACHINIST SUPERVISOR Clinical Support [facility] - Urology [facility] [place] [phone] Bryce Mathew PA [address] [place] [address] 12/17/2024 2:00 PM OUTSIDE MACHINIST SUPERVISOR Clinical Support [facility] [address] [place] [phone] Bryce Mathew PA [address] [place] [address] 12/24/2024 2:00 PM OUTSIDE MACHINIST SUPERVISOR Clinical Support [facility] [address] [place] [phone] Bryce Mathew PA [address] [place] [address] 01/22/2025 2:45 PM OUTSIDE MACHINIST SUPERVISOR Office Visit [facility] [address] [place] [phone] Clayton Celis MD [address] [place] [address] Health Maintenance Due Date Last Done Comments COLOGUARD (AGES 45-75) - COL ON CA SCREENING 1960 COLON MONITORING 1960 COLONOSCOPY - COLON CA SCREENING 1960 CT COLONOGRAPHY - COLON CA SCREENING 1960 Colorectal Cancer Screening 1960 FIT - COLON CA SCREENING 1960 FLEX SIG - COLON CA SCREENING 1961 HIV SCREENING 1976 HEPATITIS C SCREENING 04/12/1979 DTAP/TDAP/TD VACCINES (1 - Tdap) 1980 PNEUMOCOCCAL VACCINE 50+ (1 of 2 - PCV) 1980 PAP SMEAR 1982 ZOSTER VACCINE (1 of 2) 04/17/2011 MAMMOGRAM 06/22/2013 06/23/2011, 06/23/2011 DIABETES-SERUM CREATININE 07/23/2020 07/24/2019 Respiratory Syncytial Virus (RSV) Vaccine Pt: or over 60 yrs (1 - Risk 60-74 years 1-dose series) 2021 DIABETES-FOOT EXAM WITH MONOFILAMENT 10/02/2021 DIABETES-HGB A1C 10/02/2021 DIABETES RETINOPATHY SCREENING 10/14/2023 0 10/13/2021, 10/02/2021, 10/02/2021 DIABETES - URINE PROTEIN SCREENING 02/08/2024 COVID-19 VACCINE ( - 2023-2 5 season) 2024 INFLUENZA VACCINE (#1) 2024 12/18/2013 DEPRESSION SCREENING Completed 09/18/2024 HEPATITIS B VACCINE Aged Out No longe r eligible based on patient's age to complete this topic HIB VACCINE Aged Out No longer eligi ble based on patient's age to complete this topic HPV VACCINE Aged Out No longer eligi ble based on patient's age to complete this topic MENINGOCOCCAL (Group B) VACCINE SHARED DECISION-MAKING Aged Out No longer eligible based on patient's age to complete this topic MENINGOCOCCAL GROUPS A/C/Y/W VACCINE Aged Out No longer eligible b ased on patient's age to complete this topic Procedures Procedure Name Priority Date/Time Associated Diagnosis Comments URINALYSIS W/MICROSCOPIC REFLEX TO CULTURE Routine 09/18/2024 4:18 PM CDT Urgency incontinence CULTURE URINE REFLEXED III 09/18/2024 4:18 PM CDT URINALYSIS AUTO - POINT OF CARE (AMB) [facility] Routine 09/18/2024 3:52 PM CDT Urgency incontinence CREATININE - POCT INTERFACED Routine 07/24/2019 7:10 AM CDT from Last 3 Months or Most Recently Relevant to Health Maintenance Results * CULTURE URINE REFLEXED III (09/18/2024 4:18 PM CDT) Reflexive Urine Culture See Below [facility] Comment: NO CULTURE INDICATED Test Performed at: [facility] [employer] [address] [address] DARNELL YANCEY MD 09/18/2024 4:18 PM CDT 09/19/2024 12:42 AM CDT us Clayton Celis MD LAB - MICROBIOLOGY ORDERA BLES Final Result Performing Organization Address [facility] Co de Phone Number [address] [address] * (ABNORMAL) URINALYSIS W/MICROSCOPIC REFLEX TO CULTURE (09/18/2024 4:18 PM CDT) Color UA YELLOW YELLOW [facility] Appearance CLEAR CLEAR [facility] Specific [place] UA 1.015 1.001 - 1.035 [facility] pH UA 6.0 5.0 - 8.0 [facility] Glucose UA NEGATIVE NEGATIVE [facility] Bilirubin UA NEGATIVE NEGATIVE [facility] Ketone UA NEGATIVE NEGATIVE [facility] Blood UA NEGATIVE NEGATIVE [facility] Protein UA TRACE(A) NEGATIVE [facility] Nitrite NEGATIVE NEGATIVE [facility] Leukocyte Esterase NEGATIVE NEGATIVE [facility] WBC UA NONE SEEN < OR = 5 /HPF [facility] RBC UA NONE SEEN < OR = 2 /HPF [facility] Epithelial Cell UA 0-5 < OR = 5 /HPF [facility] Bacteria UA NONE SEEN NONE SEEN /HPF [facility] Hyaline Casts NONE SEEN NONE SEEN /LPF [facility] Note See Below [facility] Comment: This urine was analyzed for the presence of WBC, RBC, bacteria, casts, and other formed elements. Only those elements seen were reported. Test Performed at: [address] [address] DARNELL YANCEY MD Urine URINE SPECIMEN OBTAINED BY CLEAN CATCH PROCEDURE / Unknown 09/18/2024 4:18 PM CDT 09/19/2024 12:42 AM CDT us Clayton Celis MD LAB - URINALYSIS ORDERABL ES Final Result Performing Organization Address [facility] Co de Phone Number [address] [address] * URINALYSIS AUTO - POINT OF CARE (AMB) [facility] (09/18/2024 3:52 PM CDT) Glucose UA NEG [facility] [address] Bilirubin UA POCT NEG [facility] [address] Ketones UA POCT NEG [facility] [address] Specific [place] UA 1.[address] [facility] [address] Blood Urine POCT +- [address] [facility] [address] pH UA 6.0 [facility] [address] Protein UA +- 15 [facility] [address] Urobilinogen UA - 0.2 [facility] [address] Nitrite UA NEG [facility] [address] WBC UA NEG [facility] [address] Urine URINE / Unknown 09/18/2024 3:52 PM CDT Clayton Celis MD LAB - POINT OF CARE ORDER GERARDO Final Result [facility] [address] [place] [address], [facility] [phone] * CREATININE - POCT INTERFACED (07/24/2019 7:10 AM CDT) Creatinine POCT 0.6 0.3 - 1.3 mg/dL 07/24/2019 7:11 AM CDT [facility] Comment:Range ok for MRI eGFR >60 >60 mL/min/1.7 3 m2 07/24/2019 7:11 AM CDT [facility] Blood BLOOD SPECIMEN / Unknown 07/24/2019 7:10 AM CDT 07/24/2019 7:11 AM CDT Cesario Parekh MD LAB - POINT OF CARE [place] [facility] Final Result [facility] [address] [place] [address], [facility] [phone] from Last 3 Months or Most Recently Relevant to Health Maintenance Insurance ANTHEM Care Teams Knitting Tester Relationship Specialty Start Date End Date Chetan Orellana MD [address] [place] [address] PCP - General Internal Medicine 03/06/24 Madison Ramos MD 03/01/16
--- OUTSIDE RECORDS SUMMARY | 2024-10-09 07:33 | XMS_ITS | Encounter Summary ---
Author Organization [facility] Address [address] [facility] [place] [address] Care Team Providers Care Unix Architect Name Role Phone Madison Ramos MD Unavailable [phone] Chetan Orellana MD Primary Care Provider [phone] Encounter Details Date Type Department Care Team (Late st Contact Info) Description 09/19/2024 Results Follow-Up [facility] [address] [facility] [address] [place] [phone] Clayton Celis MD [address] [facility] [address] [place] [address] Social History Tobacco Use Types Packs/Day Years Used Date Smoking Tobacco: Never Smokeless Tobacco: Never Alcohol Use Standard Drinks/Week Comments Never 0 (1 standard drink = 0.6 oz pur e alcohol) PHQ-2 Answer Date Recorded Patient Health Questionnaire-2 Score 0 09/18/2024 Comments Unknown Sex and Gender Information Value Date Recorded Sex Assigned at Not on file Legal Sex Female 4:25 AM 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 OFFICER Gender Identity Not on file Sexual Orientation Not on file documented as of this encounter Plan of Treatment Upcoming Encounters Date Type Department Care Team (Late st Contact Info) Description 10/15/2024 2:00 PM CDT Clinical Support [facility] - Urology [facility] [place] [address] Bryce Mathew PA [address] [place] [address] 10/22/2024 2:00 PM CDT Clinical Support [facility]rology [address] [place] [phone] Bryce Mathew PA [address] [place] [address] 10/29/2024 2:00 PM CDT Clinical Support [facility] [address] [place] [phone] Bryce Mathew PA [address] [place] [address] 11/05/2024 2:00 PM CDT Clinical Support [facility]rology [address] [place] [phone] Bryce Mathew PA [facility] [place] [address] 11/12/2024 2:00 PM CDT Clinical Support [facility] [address] [place] [phone] Bryce Mathew PA [address] [place] [address] 11/19/2024 2:00 PM CDT Clinical Support [facility] [address] [place] [phone] Bryce Mathew PA [address] [place] [address] 11/26/2024 2:20 PM CDT Clinical Support [facility] [address] [place] [address], [place] [address] Bryce Mathew PA [address] [place] [address] 12/03/2024 2:00 PM CDT Clinical Support [facility] [address] [place] [phone] Bryce Mathew PA [address] [place] [address] 12/10/2024 2:00 PM STAFF WEAPONS OFFICER Clinical Support [facility] [address] [place] [phone] Bryce Mathew PA [facility] [place] [address] 12/17/2024 2:00 PM STAFF WEAPONS OFFICER Clinical Support [facility] [address] [place] [phone] Bryce Mathew PA [facility] [place] [address] 12/24/2024 2:00 PM STAFF WEAPONS OFFICER Clinical Support [facility] [address] [place] [phone] Bryce Mathew PA [address] [place] [address] 01/22/2025 2:45 PM STAFF WEAPONS OFFICER Office Visit [facility] [address] [place] [phone] Clayton Celis MD [address] [place] [address] documented as of this encounter Visit Diagnoses Not on filedocumented in this encounter Care Teams Unix Architect Relationship Specialty Start Date End Date Chetan Orellana MD [address] [place] [address] PCP - General Internal Medicine 03/06/24 Madison Ramos MD 03/01/16 documented as of this encounter
--- OUTSIDE RECORDS SUMMARY | 2024-10-09 07:33 | XMS_ITS | Encounter Summary ---
Author Organization [facility] Healthcare Address [address] [place] [address] Care Team Providers Care Binder Operator Name Role Phone Jose Luis Light MD Primary Care Provider [phone] Pablo Gupta DO Primary Care Provider [phone] Encounter Details Date Type Department Care Team (Late st Contact Info) Description 04/24/2017 Orders Only [facility] Health Information Management [address] [place] [address] Scanning, Provider Social History Tobacco Use Types Packs/Day Years Used Date Smoking Tobacco: Former Smokeless Tobacco: Never Alcohol Use Standard Drinks/Week Comments No 0 (1 standard drink = 0.6 oz pur e alcohol) Comments Unknown Sex and Gender Information Value Date Recorded Sex Assigned at Not on file Legal Sex Female 11:20 AM 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 HAND MACHINE Gender Identity Not on file Sexual Orientation Not on file documented as of this encounter Plan of Treatment Not on file documented as of this encounter Procedures Procedure Name Priority Date/Time Associated Diagnosis Comments CARDIOLOGY DOCUMENT SCAN 04/24/2017 documented in this encounter Results * Cardiology Document Scan (04/24/2017) Anatomical Region Laterality Modality Other us Provider Scanning CV CARDIAC SERVICES PROCEDURES Final Result documented in this encounter Visit Diagnoses Not on filedocumented in this encounter Care Teams Binder Operator Relationship Specialty Start Date End Date Jose Luis Light MD [address] [place] [address] PCP - General Internal Medicine 03/03/17 09/17/21 Pablo Gupta DO [address] [place] [address] PCP - General Family Medicine 09/18/21 documented as of this encounter
--- OUTSIDE RECORDS SUMMARY | 2024-10-09 07:33 | XMS_ITS | Encounter Summary ---
Author Organization [facility] Healthcare Address [address] [place] [address] Care Team Providers Care Quality Assurance Clerk Name Role Phone Jose Luis Light MD Primary Care Provider [phone] Pablo Gupta DO Primary Care Provider [phone] Encounter Details Date Type Department Care Team (Late st Contact Info) Description 04/25/2017 Orders Only [facility] Health Information Management [address] [place] [address] Scanning, Provider Social History Tobacco Use Types Packs/Day Years Used Date Smoking Tobacco: Former Smokeless Tobacco: Never Alcohol Use Standard Drinks/Week Comments No 0 (1 standard drink = 0.6 oz pur e alcohol) Comments Unknown Sex and Gender Information Value Date Recorded Sex Assigned at Not on file 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 Gender Identity Not on file Sexual Orientation Not on file documented as of this encounter Plan of Treatment Not on file documented as of this encounter Procedures Procedure Name Priority Date/Time Associated Diagnosis Comments SCAN - LABS 04/25/2017 CARDIOLOGY DOCUMENT SCAN 04/25/2017 documented in this encounter Results * SCAN - LABS (04/25/2017) us Provider Scanning Final Result * Cardiology Document Scan (04/25/2017) Anatomical Region Laterality Modality Other us Provider Scanning CV CARDIAC SERVICES PROCEDURES Final Result documented in this encounter Visit Diagnoses Not on filedocumented in this encounter Care Teams Quality Assurance Clerk Relationship Specialty Start Date End Date Jose Luis Light MD [address] [place] [address] PCP - General Internal Medicine 03/03/17 09/17/21 Pablo Gupta DO [address] [place] [address] PCP - General Family Medicine 09/18/21 documented as of this encounter
--- NOTE | 2024-10-09 08:23 | ECHO_ITS ---
Patient Info Name: Corrie Nice Age: 64 years : 1960 Gender: Female Ht: 71 in Wt: 210 lbs BSA: 2.21 m2 HR: 80 bpm BP: 162 / 83 mmHg Technical Quality: Good Exam Date: 10/09/2024 10:10 AM Patient Status: O Admit Date: 10/09/2024 Exam Type: CA echo doppler color flow Complete two-dimensional, color flow and Doppler transthoracic echocardiogram is performed. Staff Referring Physician: Aram Gonzalez DO Insights Manager: Jessica Nam Attending Provider: Aram Gonzalez DO Summary 1. Complete two-dimensional, color flow and Doppler transthoracic echocardiogram is performed. 2. Left ventricular chamber dimension is moderately enlarged. 3. Left ventricular systolic function is mildly reduced, estimated at 45-50. 4. The left ventricular diastolic function is grade III diastolic dysfunction. 5. E/e' 16 is elevated. 6. Left atrial chamber dimension is severely enlarged. 7. There is mild aortic valve sclerosis. 8. There is trace aortic valve regurgitation. 9. The mitral valve has a mildly calcified annulus. 10. There is severe mitral valve regurgitation. 11. There is moderate tricuspid valve regurgitation. 12. Severe pulmonary hypertension, estimated pulmonary arterial systolic pressure is 70 mmHg. 13. There is trace pulmonic regurgitation. Left Ventricle E/e' 16 is elevated. Left ventricular chamber dimension is moderately enlarged. Left ventricular systolic function is mildly reduced, estimated at 45-50. The left ventricular diastolic function is grade III diastolic dysfunction. Right Ventricle Right ventricular chamber dimension is normal. Right ventricular systolic function is normal. Left Atria Left atrial chamber dimension is severely enlarged. Right Atria Right atrial chamber dimension is normal. Aortic Valve The aortic valve is trileaflet. There is mild aortic valve sclerosis. There is no aortic valve stenosis. There is trace aortic valve regurgitation. Pulmonic Valve There is trace pulmonic regurgitation. Mitral Valve The mitral valve has a mildly calcified annulus. There is no mitral valve stenosis. There is severe mitral valve regurgitation. Tricuspid Valve There is moderate tricuspid valve regurgitation. Severe pulmonary hypertension, estimated pulmonary arterial systolic pressure is 70 mmHg. Pericardium/Pleural There is no pericardial effusion. Inferior Vena Cava Normal inferior vena cava with >50% collapse upon inspiration consistent with normal right atrial pressure, 5 mmHg. Aorta The aortic root size at the sinus of Valsalva is normal. Left Ventricular Outflow Tract Name Value Normal LVOT 2D LVOT Diameter 2.0 cm LVOT Doppler LVOT Peak Velocity 64 cm/s LVOT Peak Gradient 2 mmHg LVOT Mean Gradient 1 mmHg LVOT VTI 15 cm LVOT VTI/AV VTI Ratio 0.7 LVOT Stroke Volume 45 ml LVOT CO 9.2 l/min LVOT CI 4.2 l/min/m2 Pulmonic Valve Name Value Normal PV Doppler PV Peak Velocity 75 cm/s PV Peak Gradient 2 mmHg Mitral Valve Name Value Normal MV Doppler MV Peak Gradient 14 mmHg MV Mean Gradient 4 mmHg MV Area (Cont Eq VTI) 1.3 cm2 MV Diastolic Function MV E Peak Velocity 128 cm/s MV A Peak Velocity 47 cm/s MV E/A 2.7 MV Decel Time (PW) 170 ms MV Annular TDI MV E/e' (Septal) 17.5 MV E/e' (Lateral) 15.3 MV E/e' (Average) 16.4 Tricuspid Valve Name Value Normal TV Regurgitation Doppler TR Peak Velocity 403 cm/s TR Peak Gradient 65 mmHg Estimated PAP/RSVP RA Pressure 5 mmHg <=5 PA Systolic Pressure 70 mmHg <36 RV Systolic Pressure 70 mmHg <36 TV Annular TDI TV Lateral Rosalva s' Velocity 11.1 cm/s >=9.5 Aorta Name Value Normal Ascending Aorta Ao Root Diameter (MM) 3.1 cm Ao Root Diam Index (MM) 1.4 cm/m2 Aortic Valve Name Value Normal AV Doppler AV Peak Velocity 126 cm/s AV Peak Gradient 6 mmHg AV Mean Gradient 4 mmHg AV VTI 23 cm AV Area (Cont Eq VTI) 2.0 cm2 >=3.0 AV Area (Cont Eq Satya) 1.5 cm2 AV DI (Satya) 0.51 AV Regurgitation 2D LVOT Area 3.0 cm2 Ventricles Name Value Normal LV Dimensions 2D/MM IVS Diastolic Thickness (2D) 0.8 cm 0.6-1.0 LVID Diastole (2D) 6.0 cm 3.8-5.2 LVIW Diastolic Thickness (2D) 0.9 cm 0.6-0.9 LVID Systole (2D) 5.0 cm 2.2-3.5 LVOT Diameter 2.0 cm LV Mass (2D Cubed) 208.33 g 67.00-162.00 LV Mass Index (2D Cubed) 94 g/m2 43-95 Relative Wall Thickness (2D) 0.31 <=0.42 LV Fractional Shortening/Ejection Fraction 2D/MM LV Fractional Shortening (2D) 16 % 27-45 LV EF (2D Teichholz) 33 % LV Diastolic Volume (4C MOD) 188 ml LV EF (4C MOD) 47 % LV Diastolic Volume (2C MOD) 222 ml LV EF (2C MOD) 49 % LV Diastolic Volume (BP MOD) 210 ml 46-106 LV Diastolic Volume Index (BP MOD) 95 ml/m2 29-61 LV Systolic Volume (BP MOD) 110 ml 14-42 LV Systolic Volume Index (BP MOD) 50 ml/m2 8-24 LV EF (BP MOD) 47 % 54-74 LV Diastolic Length (4C) 9.0 cm LV Systolic Length (4C) 7.7 cm LV Stroke Volume (4C MOD) 88 ml RV Dimensions 2D/MM RVID Diastole (2D) 3.4 cm 2.1-3.5 Atria Name Value Normal LA Dimensions LA Dimension (MM) 5.2 cm 2.7-3.8 LA Volume (4C A-L) 131 ml LA Volume (BP A-L) 135 ml RA Dimensions RA Systolic Major Chandler Length (4C) 4.6 cm 2.2-2.8 RA Area (4C) 14.4 cm2 <=18.0 Report Signatures
--- NOTE | 2024-10-09 08:30 | EST_ITS ---
Patient Info Name: Corrie Nice Age: 64 years : 1960 Gender: Female Ht: 71 in Wt: 210 lbs BSA: 2.21 m2 HR: 79 bpm BP: 173 / 87 mmHg Exam Date: 10/09/2024 8:30 AM Patient Status: O Admit Date: 10/09/2024 Exam Type: CA stress lio w NM A regadenoson stress test was performed. Staff Referring Physician: Aram Gonzalez DO Attending Provider: Aram Gonzalez DO Exercise Technologist: Jamee Irwin Exercise Physician: Aram Gonzalez DO Summary 1. 1. Negative lexiscan stress test for ischemic ST changes by ECG criteria. 2. 2. Baseline hypertension. 3. 3. Nuclear scan to follow and will be reported separately. Please correlate with it. 4. 4. Patient informed of the above results. Protocol: Lexiscan Stress ECG Details Stage: REST Duration (min): 1 min : 55 sec HR (bpm): 79 SBP (mmHg): 173 DBP (mmHg): 87 Stage: REST Duration (min): 8 min : 24 sec HR (bpm): 80 SBP (mmHg): 173 DBP (mmHg): 87 Stage: STAGE 1 Duration (min): 0 min : 59 sec HR (bpm): 95 SBP (mmHg): 184 DBP (mmHg): 81 Stage: RECOVERY Duration (min): 1 min : 0 sec HR (bpm): 101 SBP (mmHg): 184 DBP (mmHg): 81 Stage: RECOVERY Duration (min): 2 min : 0 sec HR (bpm): 94 SBP (mmHg): 184 DBP (mmHg): 81 Stage: RECOVERY Duration (min): 3 min : 0 sec HR (bpm): 95 SBP (mmHg): 159 DBP (mmHg): 77 Stage: RECOVERY Duration (min): 4 min : 0 sec HR (bpm): 92 SBP (mmHg): 159 DBP (mmHg): 77 Stage: RECOVERY Duration (min): 5 min : 0 sec HR (bpm): 89 SBP (mmHg): 159 DBP (mmHg): 77 Stage: RECOVERY Duration (min): 5 min : 26 sec HR (bpm): 87 SBP (mmHg): 159 DBP (mmHg): 77 Rest HR: 80 bpm Peak HR: 104 bpm Rest Sys BP: 173 mmHg Peak Sys BP: 184 mmHg Max Pred HR: 157 bpm % Max Pred HR: 66 % Target HR: 133 bpm Max RPP: 19,136 bpm*mmHg Termination Reason: Completed protocol Cardiac Symptoms: Shortness of breath, Nausea Total Time: 1 min : 0 sec Rest Griggs BP: 87 mmHg Peak Griggs BP: 81 mmHg Total Dose: 0.4 mg Resting ECG Sinus rhythm. Stress ECG No ST changes. Arrhythmias None. Report Signatures
== END 2024-10-09 07:24 | disposition home or self-care (01) ==
LOC: ANHCARD 07:26
PROVIDERS: PCP Emergency Medicine; Visit Provider Internal Medicine Cardiovascular Disease
DX: R93.1 Abnormal findings on diagnostic imaging of heart and coronary circulation (principal); M79.602 Pain in left arm; I24.89 Other forms of acute ischemic heart disease
CPT/HCPCS: 78452; 93017; 93306; A9502; J2785

== ENCOUNTER 2024-11-26 00:41 | Day surgery (SDC) | payer BC, SELFPAY ==
[2024-11-23 15:55] VITALS: BMI 28.2
[2024-11-26] VITALS (17 sets, daily range): BP systolic 144–174; BP diastolic 69–119; PULSE 77–87; RESP 14–18; TEMP 36.1; O2SAT 97–100; BMI 27.5
--- NOTE | 2024-11-26 13:26 | WPDHPUPDATE1 ---
History and Physical Update Update Date/Time: 11/26/24 13:26 History and Physical has been reviewed, including an updated exam of the patient. There are NO changes in the patient's condition. Risks, benefits, and alternatives have been discussed and questions answered. Patient agrees to proceed with procedure.
--- NOTE | 2024-11-26 13:26 | WPDMODSED ---
Moderate Sedation Note-Pt Data Patient Data Allergies Allergy/AdvReac Type Severity Reaction Status Date / Time No Known Allergies Allergy Verified 11/26/24 13:17 Home Medications ?Medication ?Instructions ?Recorded ?Confirmed ?Type aspirin 81 mg tablet,delayed 81 mg PO DAILY 02/27/19 11/26/24 History release (Adult Aspirin Regimen) atorvastatin 20 mg tablet 20 mg PO DAILY #90 tabs 02/28/24 11/23/24 Rx metoprolol succinate 50 mg 50 mg PO DAILY #90 tabs 07/17/24 11/23/24 Rx tablet,extended release 24 hr tirzepatide 12.5 mg/0.5 mL 12.5 mg (0.5 mL) subcut WEEKLY #2 10/19/24 11/23/24 Rx subcutaneous pen injector mL (Mounjaro) lisinopril 20 mg tablet 20 mg PO DAILY 11/23/24 11/23/24 History Sedation/Anesthesia: No previous sedation/anesthesia problems (including family history). [facility] Past Medical History Medical History Cough Asthma exacerbation Acute pain of left shoulder Obstructive sleep apnea Uterine fibroid Trochanteric bursitis, left hip Left hip pain Tooth decay Fx surg nck humerus-closed (~11/2021) Knee effusion Left knee DJD Right knee DJD History of vaginal delivery Family History Family History Father Diabetes mellitus, Onset Age: 81 Hypertension, Onset Age: 81 Sibling Patient's sister is in good health Patient's brother is in good health Mother Family history of congestive heart failure Other Family history of cardiovascular disease Social History Social History (Updated 07/25/24 @ 13:40 by Eva Worthy MA) Social History: Caffeine- daily Smoking status: Former smoker Second hand tobacco smoke exposure: Yes Smoking end date: 02/07/06 Alcohol intake: never Drinks per week: 5 Alcohol use details: occasionally Substance use: never Substance use type: does not use Lack of Transportation: No Lack of Food: Never True Current Housing: Decline to Answer Concerned About Future Housing: Decline to Answer Difficulty Paying Gas/Electric Bills: Decline to Answer Difficulty Paying for Meds: Decline to Answer Currently Unemployed: Decline to Answer Education: Decline to Answer Difficulty w/ Childcare or Family Care: Decline to Answer Living arrangements: with family Occupation/Education: occupation Gender identity (if verbalized by the patient): Female Spiritual care concerns: No Mod Sed Physical Exam Physical Exam Pre Procedural Exam: Normal: Lungs, Heart Size, Heart Rate and Heart Rhythm Hours since solid foods: 12 Hours since liquid intake: 12 Mallampati Classification: class II Internal Medicine - PN: Obj Da Vital Signs Vital Signs: Vital Signs - 24 hr 11/26/24 13:20 Temperature 36.1 C L Pulse Rate 82 Respiratory Rate 16 Pulse Oximetry 100 Oxygen Delivery Room Air ASA Classification/Sedation ASA Classification/Sedation ASA Class: III Emergent: No Risks: Risks, benefits and alternatives explained and patient/family accepted plan for sedation. Patient re-evaluated immediately prior to sedation.
[2024-11-26 13:33] LABS: Hematocrit 35.5 % (37.0-47.0); Hemoglobin 11.8 g/dL (12.0-15.0); Immature Granulocyte Percent A 0.4 % (0-0.5); Lymphocytes Absolute Auto 1.78 K/mm3 (0.9-3.2); Mean Corpuscular HGB Conc 33.2 g/dl (32-36); Mean Corpuscular Hemoglobin 27.6 pg (26-34); Mean Corpuscular Volume 83.1 fl (80-100); Nucleated Red Blood Cells Absolute Auto 0.000 K/mm3 (0.0-0.012); Nucleated Red Blood Cells Perc 0.0 % (0.0-0.2); Platelet Count Result 213 k/mm3 (150-375); Red Blood Count 4.27 M/mm3 (4.2-5.4); White Blood Count 4.9 K/mm3 (4.5-10.0)
[2024-11-26 13:47] LABS: Anion Gap 7 mmol/L (4-12); Blood Urea Nitrogen 12 mg/dL (7-17); Calcium 9.2 mg/dL (8.4-10.2); Carbon Dioxide 26 mmol/L (22-30); Chloride 106 mmol/L (98-107); Estimated CRCL calculation 62 ml/min; Estimated Glomerular Filt Rate 60; Glucose 77 mg/dL (65-110); Potassium 4.0 mmol/L (3.4-5.0); Sodium 139 mmol/L (137-145)
[2024-11-26 13:55] LABS: Schistocytes None Seen; Target Cells 1+
--- NOTE | 2024-11-26 14:28 | P.PCNCC_ITS ---
Cardiac Cath Procedure Note Date of procedure:: 11/26/24 Performing physician:: CATHETERIZATION LABORATORY REPORT Procedure Date: 11/26/2024 Referring Physician: Dr. Gonzalez Anesthesia: Versed and Fentanyl were ordered and given in my presence at 1407, procedure ended at 1422. Supervision of nurse monitored moderate sedation with 2mg Versed and 50mcg Fentanyl was provided for 15 minutes. Pre-op Diagnosis: Abnormal stress test Post-op Diagnosis: Abnormal stress test Procedure(s): Left heart catheterization with coronary angiography Access Site: Right radial artery Brief History and Clinical Indications: All risks, benefits and alternatives to left heart catheterization with or without percutaneous coronary intervention was discussed at length with the patient. Risk of complications including but not limited to bleeding, infection, arrhythmia, stroke, worsening kidney function, blood loss, groin hematoma, limb loss, emergency coronary artery bypass grafting, and even were discussed with the patient and all questions were answered. The patient understood and wished to proceed. Time out called, patient name, date of , medical record number, allergies, procedure performed, identify Manager Inspection, patient and staff member concurred with accurate data, procedure carried on. Findings: LEFT HEART CATHETERIZATION FINDINGS: 1. Left main: The left main coronary artery is widely patent without any significant obstructive disease. 2. Left anterior descending: The LAD and the diagonal branches have mild luminal irregularities without any significant obstructive angiographic disease. 3. Left circumflex: The left circumflex artery is a codominant vessel that gives off 3 OM branches. The left circumflex after the second OM branch has 40-50% stenosis. 4. Right coronary artery: The RCA is a large dominant vessel with luminal irregularities. 5. Left ventricle: A. End-diastolic pressure 24 mmHg. B. LV gram deferred. C. No significant gradient across aortic valve on catheter pullback. 6. Opening AO pressure 153/70 and closing AO pressure 169/54 Description of Procedure: Informed consent signed and placed in the chart. Patient transferred to r and d lab technician room. Prepped and draped in usual sterile fashion. 2% lidocaine injected subcutaneously in right wrist area. 22-gauge venipuncture catheter used to access the right radial artery with the Seldinger technique. 6-FR slender sheath placed in right radial artery. Nitroglycerin 200mcg, Verapamil 2.5mg, and Heparin 5000U was given intraarterial through the sheath. J wire advanced under fluoroscopy. 5F TIG diagnostic catheter engaged Left Main Coronary Artery and Right Coronary Artery. Multiple orthogonal angiogram obtained and reviewed. 5F Pigtail catheter crossed aortic valve to obtain LVEDP, LV angiogram deferred. Hemostasis was achieved by application of TR band. Assessment: Moderate CAD. Post Operative Condition: Stable No significant blood loss Disposition: Home Plan: The above findings were discussed with the referring physician. Continue aggressive medical therapy and risk factor modification. [facility]
[2024-11-26] MEDS: SODIUM CHLORIDE 0.9% IV 1,000 ML 125 ML IV CONT (14:58)
--- NOTE | 2024-11-26 18:37 | SUR.PHASEII ---
Recovery complete at 1830. Pt waiting for ride in [facility] before being discharged. DC paperwork reviewed and pt verbalized understanding.
== END 2024-11-26 19:07 | disposition home or self-care (01) ==
PROVIDERS: PCP Emergency Medicine; Visit Provider Internal Medicine
PROC: 4A023N7 Measurement of Cardiac Sampling and Pressure, Left Heart, Percutaneous Approach (ICD-10-PCS; CPT 93452; principal; 2024-11-26 14:30)
DX: I25.10 Atherosclerotic heart disease of native coronary artery without angina pectoris (principal); R94.39 Abnormal result of other cardiovascular function study
CPT/HCPCS: 36415; 80048; 85025; 93458; C1769; C1887; C1894; J1644; J2003; J2250; J2305; J3010; J7030; J7040

== ENCOUNTER 2024-12-21 02:55 | Day surgery (SDC) | payer BC, SELFPAY ==
[2024-12-11 08:16] VITALS: BMI 28.0
[2024-12-21 09:18] VITALS: BP 134/57; PULSE 64; RESP 20; TEMP 36.2; O2SAT 100
--- NOTE | 2024-12-21 09:26 | WPDANESEPPF ---
Anes - Initial Pre Proc Eval Procedure: Operation Date: 12/21/24 10:30 Proposed Procedures p Screening Colonoscopy - Adonis Cabezas MD Date/Time: 12/21/24 09:26 Surgeon: Adonis Cabezas MD Pre Op Diagnosis: Positive cologuard/screening Patient Data Age: 64 Gender: F Height: 1.83 m Weight: 93.3 kg Last Vital Signs Temp 36.2 C L 12/21/24 09:18 Pulse 64 12/21/24 09:18 Resp 20 12/21/24 09:18 BP 134/57 L 12/21/24 09:18 Pulse Ox 100 12/21/24 09:18 O2 Del Method Room Air 12/21/24 09:18 Allergies Allergy/AdvReac Type Severity Reaction Status Date / Time No Known Allergies Allergy Verified 12/21/24 09:15 Home Medications ?Medication ?Instructions ?Recorded ?Confirmed ?Type aspirin 81 mg tablet,delayed 81 mg PO DAILY 02/27/19 12/21/24 History release (Adult Aspirin Regimen) atorvastatin 20 mg tablet 20 mg PO DAILY #90 tabs 02/28/24 12/21/24 Rx metoprolol succinate 50 mg 50 mg PO DAILY #90 tabs 07/17/24 12/21/24 Rx tablet,extended release 24 hr lisinopril 20 mg tablet 20 mg PO DAILY 11/23/24 12/21/24 History cholecalciferol (vitamin D3) 1,250 1,250 mcg PO WEEKLY #12 caps 12/14/24 12/21/24 Rx mcg (50,000 unit) capsule tirzepatide 15 mg/0.5 mL 15 mg (0.5 mL) subcut WEEKLY #2 mL 12/14/24 12/21/24 Rx subcutaneous pen injector (Mounjaro) Patient hx anesthesia problems: none Family hx anesthesia problems: none Results Review: All pre-operative results and documents have been reviewed as part of the pre-operative evaluation. [facility] Past Medical History Medical History Cough Asthma exacerbation Acute pain of left shoulder Obstructive sleep apnea Uterine fibroid Trochanteric bursitis, left hip Left hip pain Tooth decay Fx surg nck humerus-closed (~11/2021) Knee effusion Left knee DJD Right knee DJD History of vaginal delivery Family History Family History Father Diabetes mellitus, Onset Age: 81 Hypertension, Onset Age: 81 Sibling Patient's sister is in good health Patient's brother is in good health Mother Family history of congestive heart failure Other Family history of cardiovascular disease Social History Social History Social History: Caffeine- daily Smoking status: Former smoker Tobacco type: cigarettes Second hand tobacco smoke exposure: Yes Smoking end date: 02/07/06 Alcohol intake: never Drinks per week: 5 Alcohol use details: beer Substance use: never Substance use type: does not use Lack of Transportation: No Lack of Food: Never True Current Housing: Decline to Answer Concerned About Future Housing: Decline to Answer Difficulty Paying Gas/Electric Bills: Decline to Answer Difficulty Paying for Meds: Decline to Answer Currently Unemployed: Decline to Answer Education: Decline to Answer Difficulty w/ Childcare or Family Care: Decline to Answer Living arrangements: with family Occupation/Education: occupation Gender identity (if verbalized by the patient): Female Spiritual care concerns: No Anes - Eval Final PreProcedure Day of Procedure 12/21/24 09:26 Patient weight: overweight Heart: regular rate and rhythm Lungs: clear to auscultation Airway: Mallampati scale class II Neurological: alert and oriented Last oral intake: >/= 8 hours ASA classification: III Emergent: no Anesthetic plan: proceed Anesthesia type and monitoring: general GIVS and standard monitoring Results Review: All pre-operative results and documents have been reviewed as part of the pre-operative evaluation. Informed Consent: The patient's anesthetic plan and its attendant risks and benefits were discussed with the patient/family/POA. Questions were solicited and answers provided to the satisfaction of the patient/family/POA.
[2024-12-21] MEDS: LACTATED RINGERS 1,000 ML 150 ML IV CONT (09:29)
--- NOTE | 2024-12-21 09:39 | PM.HPGS ---
History of Present Illness History of Present Illness Consent: Risks, benefits, and alternatives have been discussed and questions answered. Patient agrees to proceed with procedure. Chief complaint: Positive cologuard/screening Narrative: Corrie Nice is a 64 year old female here for first colonoscopy, + cologuard Review of Systems Review of Systems: All systems reviewed & are unremarkable except as noted in HPI and below PMFSH Past Medical History Medical History (Updated 12/21/24 @ 09:39 by Adonis Cabezas MD) Positive colorectal cancer screening using Cologuard test Cough Asthma exacerbation Acute pain of left shoulder Obstructive sleep apnea Uterine fibroid Trochanteric bursitis, left hip Left hip pain Tooth decay Fx surg nck humerus-closed (~11/2021) Knee effusion Left knee DJD Right knee DJD History of vaginal delivery Family History Family History Father Diabetes mellitus, Onset Age: 81 Hypertension, Onset Age: 81 Sibling Patient's sister is in good health Patient's brother is in good health Mother Family history of congestive heart failure Other Family history of cardiovascular disease Social History Social History Social History: Caffeine- daily Smoking status: Former smoker Tobacco type: cigarettes Second hand tobacco smoke exposure: Yes Smoking end date: 02/07/06 Alcohol intake: never Drinks per week: 5 Alcohol use details: beer Substance use: never Substance use type: does not use Lack of Transportation: No Lack of Food: Never True Current Housing: Decline to Answer Concerned About Future Housing: Decline to Answer Difficulty Paying Gas/Electric Bills: Decline to Answer Difficulty Paying for Meds: Decline to Answer Currently Unemployed: Decline to Answer Education: Decline to Answer Difficulty w/ Childcare or Family Care: Decline to Answer Living arrangements: with family Occupation/Education: occupation Gender identity (if verbalized by the patient): Female Spiritual care concerns: No Meds Home Medications and Allergies Home Medications ?Medication ?Instructions ?Recorded ?Confirmed ?Type aspirin 81 mg tablet,delayed 81 mg PO DAILY 02/27/19 12/21/24 History release (Adult Aspirin Regimen) atorvastatin 20 mg tablet 20 mg PO DAILY #90 tabs 02/28/24 12/21/24 Rx metoprolol succinate 50 mg 50 mg PO DAILY #90 tabs 07/17/24 12/21/24 Rx tablet,extended release 24 hr lisinopril 20 mg tablet 20 mg PO DAILY 11/23/24 12/21/24 History cholecalciferol (vitamin D3) 1,250 1,250 mcg PO WEEKLY #12 caps 12/14/24 12/21/24 Rx mcg (50,000 unit) capsule tirzepatide 15 mg/0.5 mL 15 mg (0.5 mL) subcut WEEKLY #2 mL 12/14/24 12/21/24 Rx subcutaneous pen injector (Johnundevangro) Allergies Allergy/AdvReac Type Severity Reaction Status Date / Time No Known Allergies Allergy Verified 12/21/24 09:15 Vital Signs Vital Signs - 24 hr 12/21/24 09:18 Temperature 97.2 F L Pulse Rate 64 Respiratory Rate 20 Blood Pressure 134/57 L Pulse Oximetry 100 Oxygen Delivery Room Air Exam Const: General: comfortable and no acute distress HENMT: Face/Nose/Sinus: Normal nares present Eyes: General: appearance normal, both eyes and all related structures Resp: Auscultation: clear to auscultation bilaterally Cardio: Rate: regular rate Rhythm: regular rhythm GI: Inspection: non-distended GI Palp: Yes Soft to palpation Skin: General skin exam: normal color Extrem: General: normal to inspection Psych: Mental Status: mental status grossly normal Assessment and Plan Assessment and plan (1) Positive colorectal cancer screening using Cologuard test: Code(s): R19.5 - Other fecal abnormalities Status: Acute Assessment and Plan: colonoscopy
--- NOTE | 2024-12-21 09:55 | S_PTH ---
PATIENT: Corrie Nice LOC: [facility]#:[id number] AGE/SX: 64/F ROOM: RE12/21/[address]: Adonis Cabezas MD : 1960 BED: DIS: 12/21/2024 SPEC #: [id number] RECD: 12/21/24 11:01 STATUS: MO RERaven #: [id number] REINIER: 12/21/24 09:[address]: Adonis Cabezas DEPT: [facility] Surgical RECD BY: Viky Christiansen ENTERED: 12/21/24 11:02 SP TYPE: Surgical OTHR DR: Chetan Orellana MD Tissues: A - Colon Polypectomy B - Colon Polypectomy Procedures: Hematoxylin and Eosin Stain Gross and Microscopic Level 4
[2024-12-21 09:56] VITALS: BP 122/69; PULSE 73; RESP 21; O2SAT 100
[2024-12-21 10:06] VITALS: BP 116/80; PULSE 77; RESP 16; O2SAT 100
[2024-12-21 10:16] VITALS: BP 138/56; PULSE 66; RESP 17; O2SAT 100
== END 2024-12-21 11:06 | disposition home or self-care (01) ==
PROVIDERS: PCP Emergency Medicine; Visit Provider Internal Medicine Gastroenterology
PROC: 0DJD8ZZ Inspection of Lower Intestinal Tract, Via Natural or Artificial Opening Endoscopic (ICD-10-PCS; CPT 45378; principal; 2024-12-21 10:30)
DX: R19.5 Other fecal abnormalities (principal); D12.2 Benign neoplasm of ascending colon; D12.4 Benign neoplasm of descending colon; K57.30 Diverticulosis of large intestine without perforation or abscess without bleeding; J45.909 Unspecified asthma, uncomplicated; G47.33 Obstructive sleep apnea (adult) (pediatric); M17.0 Bilateral primary osteoarthritis of knee; Z79.82 Long term (current) use of aspirin; Z79.85 Long-term (current) use of injectable non-insulin antidiabetic drugs; Z87.891 Personal history of nicotine dependence; Z82.49 Family history of ischemic heart disease and other diseases of the circulatory system
CPT/HCPCS: 45385; 82948; 88305; J2704; J7120